=== PATIENT | female | born 1935 ===

== ENCOUNTER 2022-01-24 14:11 | Inpatient (IN) | payer MEDICARE, OTHER ==
--- NOTE | 2022-01-25 08:23 | Progress Note ---
Hospitalist Physical - Constitutional Vitals: Temp Pulse Resp BP Pulse Ox 97.5 F L 76 18 148/83 96 01/25/22 02:45 01/25/22 02:45 01/25/22 02:45 01/25/22 02:45 01/25/22 02:45 Results Call/IV: Voiding Method Toilet
--- NOTE | 2022-01-25 09:38 | History and Physical Report ---
GP History & Physical - History of Present Illness Date of admission: 01/24/22 Date of Examination: 01/25/22 Reason for Admission: Danger to self, Failure of Outpatient Treatment, Severe anxiety/depression History of Present Illness: The patient was seen today. She is awake and sitting on side of the bed. She is a/o x 2. She is overall sharp. She is calm, pleasant and cooperative. She says she is here because she said something she shouldn't have said. She says she was having anxiety and said she wanted to kill herself. The patient says she drove herself to the ER. She says he has a history of depression and anxiety and takes zoloft and xanax. The patient denies an illicit drug use, alcohol or nicotine. PAST PSYCHIATRIC HISTORY: Diagnoses: depression, anxiety Suicide attempts or Self-harm behavior: Denies Prior psychiatric hospitalizations: Denies Substance Abuse history: Denies Previous psychiatric medications tried: zoloft, xanax Outpatient treatment: Yes PAST MEDICAL HISTORY: Family Psychiatric History: None reported SOCIAL HISTORY Marital Status: Living Arrangements: Alone Employment Status: Retired Access to guns/weapons: Denies Education: College History of Abuse: Denies Legal History: Denies REVIEW OF SYSTEMS Constitutional: Negative for weight loss ENT: Negative for stridor Respiratory: Negative for cough or hemoptysis All other systems reviewed and are negative MENTAL STATUS General Appearance and Behavior: age appropriate, good eye contact, cooperative, calm, pleasant Cooperation: Cooperative Psychomotor Behavior: within normal limits Mood: depressed, anxious Affect and affective range: Congruent with stated mood, tearful Thought Process: goal directed Thought Content: None Speech: Normal volume and Regular rate and rhythm Suicidal Ideation: denies at present, but previously Homicidal Ideation: Denies HI Hallucinations: Denies Delusions: None elicited Impulse Control: Limited Insight and Judgment: Limited Memory: Limited Attention: Attentive Orientation: alert and oriented Assessment Majore Depressive Disorder Generalized Anxiety Disorder Treatment Plan Patient will be admitted for inpatient psychiatric evaluation, medication adjustment and close monitoring The patient's behavior, mood, sleep and appetite will be closely monitored. Patient will be enrolled in individual and group therapeutic sessions and encouraged to attend. Patient will be provided with a safe and structured environment. Patient's physical health needs will be addressed by the Hospitalist. Hospitalist Consulted Labs including CBC, CMP, Lipid profile and Hemoglobin A1C ordered Social Assessment will be completed and the Vocational Rehabilitation Supervisor will work with patient and family to ensure a suitable and safe disposition Medication adjustment will be made as clinically indicated Restarted home meds Usual Wellness Nondenominational/Preservation: - Start Trazodone 50 mg po QHS PRN The patient agreed on the treatment plan, understood the risk, benefit, alternative treatment, potential consequence of no treatment, and gave informed consent. Case staffed with Dr. Shanks Legal Status: Voluntary Reaction to Hospitalization: Accepting Medications and Allergies Allergies Allergy/AdvReac Type Severity Reaction Status Date / Time Penicillins Allergy Unknown Verified 01/25/22 00:20 Sulfa (Sulfonamide Allergy Unknown Verified 01/25/22 00:22 Antibiotics) Home Medications Medication Instructions Recorded Confirmed Last Taken Type ALPRAZolam [Xanax TAB] 0.5 mg PO HS 01/25/22 01/25/22 Unknown History Aspirin EC [Halfprin EC] 81 mg PO QDAY 01/25/22 01/25/22 Unknown History AtorvaSTATin [Lipitor] 10 mg PO DAILY 01/25/22 01/25/22 Unknown History Calcium Carbonate [Calcium] 1,200 mg PO DAILY 01/25/22 01/25/22 Unknown History Cholecalciferol (Vitamin D3) 2,000 units PO DAILY 01/25/22 01/25/22 Unknown History [Vitamin D3 2,000 UNIT CAP] Ciprofloxacin HCl 500 mg PO BID 01/25/22 01/25/22 Unknown History HYDROcodone/APAP 5-325 [[place] 1 tab PO BID PRN 01/25/22 01/25/22 Unknown History 5-325 mg TAB] Levothyroxine [Synthroid] 112 mcg PO QAM 01/25/22 01/25/22 Unknown History Sertraline [Zoloft] 150 mg PO QDAY 01/25/22 01/25/22 Unknown History amLODIPine [Norvasc] 5 mg PO DAILY 01/25/22 01/25/22 Unknown History donepeziL [Aricept] 10 mg PO HS 01/25/22 01/25/22 Unknown History hydroCHLOROthiazide [HCTZ] 25 mg PO QDAY 01/25/22 01/25/22 Unknown History lisinopriL [Zestril TAB] 40 mg PO QDAY 01/25/22 01/25/22 Unknown History Results - Results Labs/Vitals: Last Vital Signs Temp 97.9 F 01/25/22 07:22 Pulse 89 01/25/22 07:22 Resp 20 01/25/22 07:22 BP 158/66 01/25/22 07:22 Pulse Ox 98 01/25/22 07:22 Physical Examination - Constitutional Vitals: Vital Signs Temp Pulse Resp BP Pulse Ox 97.9 F 89 20 158/66 98 01/25/22 07:22 01/25/22 07:22 01/25/22 07:22 01/25/22 07:22 01/25/22 07:22 Temperature -Last 24 Hours Temperature 97.9 F Temperature 97.5 F Temperature 97.5 F Mental Status Exam - Vital signs Last Vital Signs Temp 97.9 F 01/25/22 07:22 Pulse 89 01/25/22 07:22 Resp 20 01/25/22 07:22 BP 158/66 01/25/22 07:22 Pulse Ox 98 01/25/22 07:22 Physician Certification - Certification Statement Physician Certification Statement: This is an acknowledgement statement that THIEN SAGE is a 87 year old F who requires inpatient psychiatric admission for treatment which could reasonably be expected to improve the patient's condition for Estimated period of time patient will need to remain in the hospital: [ ] Plan for post-hospital care: [ ]
[2022-01-25] MEDS ORDERED: NON-FORMULARY EACH (Cholecalciferol (Vitamin D3) [Vitamin D3 2,000 Unit Cap] 2,000 UNIT Ca PO SCH (10:00)
[2022-01-25] MEDS ORDERED: NON-FORMULARY EACH (Calcium Carbonate [Calcium] 600 MG Tablet) PO SCH (10:00)
[2022-01-25] MEDS ORDERED: NON-FORMULARY EACH (Ciprofloxacin Hcl [Ciprofloxacin Hcl] 500 MG Tablet) PO SCH (10:00)
--- NOTE | 2022-01-25 10:14 | Consultation ---
History of Present Illness - Reason for Consult Consult date: 01/25/22 htn Requesting physician: ELMER JOHNSON - History of Present Illness Patient is a pleasant 87 year old female, with hx of depression, anxiety, HTN, hyperlipidemia, acquired hypothyroidsim, and cataract who [facility] following reported suicidal thoughts which she now states was a very fleeting thought that did not last a but a few seconds. We are asked to evaluate her for medical management. She reports compliance with her medications and denies any chest pain, nausea, vomiting, diarrhea, she is quit plesant and very knowledgeable about her medical condition. 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 Past History Past Medical History: GERD, hypertension, hyperlipidemia, hypothyroidism Past Surgical History: cataract removal, thyroidectomy, total knee replacement (bilateral), Other (RIGHT WRIST SURGERY) Social history: full code Family history: no significant family history Medications and Allergies Allergies Allergy/AdvReac Type Severity Reaction Status Date / Time Penicillins Allergy Unknown Verified 01/25/22 00:20 Sulfa (Sulfonamide Allergy Unknown Verified 01/25/22 00:22 Antibiotics) Home Medications Medication Instructions Recorded Confirmed Last Taken Type ALPRAZolam [Xanax TAB] 0.5 mg PO HS 01/25/22 01/25/22 Unknown History Aspirin EC [Halfprin EC] 81 mg PO QDAY 01/25/22 01/25/22 Unknown History AtorvaSTATin [Lipitor] 10 mg PO DAILY 01/25/22 01/25/22 Unknown History Calcium Carbonate [Calcium] 1,200 mg PO DAILY 01/25/22 01/25/22 Unknown History Cholecalciferol (Vitamin D3) 2,000 units PO DAILY 01/25/22 01/25/22 Unknown History [Vitamin D3 2,000 UNIT CAP] Ciprofloxacin HCl 500 mg PO BID 01/25/22 01/25/22 Unknown History HYDROcodone/APAP 5-325 [[place] 1 tab PO BID PRN 01/25/22 01/25/22 Unknown History 5-325 mg TAB] Levothyroxine [Synthroid] 112 mcg PO QAM 01/25/22 01/25/22 Unknown History Sertraline [Zoloft] 150 mg PO QDAY 01/25/22 01/25/22 Unknown History amLODIPine [Norvasc] 5 mg PO DAILY 01/25/22 01/25/22 Unknown History donepeziL [Aricept] 10 mg PO HS 01/25/22 01/25/22 Unknown History hydroCHLOROthiazide [HCTZ] 25 mg PO QDAY 01/25/22 01/25/22 Unknown History lisinopriL [Zestril TAB] 40 mg PO QDAY 01/25/22 01/25/22 Unknown History Active Meds: Active Medications Alprazolam (Alprazolam 0.5 Mg Tab) 0.5 mg PO HS [facility] Amlodipine Besylate (Amlodipine 5 Mg Tab) 5 mg PO DAILY [facility] Aspirin (Aspirin Ec 81 Mg Tab) 81 mg PO QDAY [facility] Atorvastatin Calcium (Atorvastatin 10 Mg Tab) 10 mg PO HS [facility] Calcium Carbonate/Glycine (Calcium Carbonate 1250 Mg Tab) 1,250 mg PO DAILY [facility] Donepezil HCl (Donepezil 10 Mg Tab) 10 mg PO HS [facility] Hydrochlorothiazide (Hydrochlorothiazide 25 Mg Tab) 25 mg PO QDAY [facility] Levothyroxine Sodium (Levothyroxine 112 Mcg Tab) 112 mcg PO 0600 [facility] Lisinopril (Lisinopril 40 Mg Tab) 40 mg PO QDAY [facility] Miscellaneous Medication (Cholecalciferol (Vitamin D3) [Vitamin D3 2,000 Unit Cap]) 2,000 units PO DAILY [facility] Miscellaneous Medication (Ciprofloxacin Hcl [Ciprofloxacin Hcl]) 500 mg PO BID [facility] Sertraline HCl (Sertraline 100 Mg Tab) 150 mg PO QDAY [facility] Review of Systems All systems: negative Constitutional: no weight loss, no weight gain, no fever, no chills, no sweats Cardiovascular: no chest pain, no orthopnea, no palpitations, no rapid/irregular heart beat, no edema, no syncope, no lightheadedness, no shortness of breath Respiratory: no cough with sputum, no hemoptysis, no shortness of breath, no dyspnea on exertion, no pain on inspiration, no sleep apnea, no respiratory infections, no home oxygen Gastrointestinal: no abdominal pain, no nausea, no vomiting, no diarrhea, no constipation, no change in bowel habits Musculoskeletal: no neck pain, no shooting arm pain, no arm numbness/tingling, no low back pain, no shooting leg pain, no morning stiffness, no muscle weakness, no muscle cramps, no myalgias, no frequent falls, no loss of height Integumentary: no rash, no pruritis, no redness, no wounds, no jaundice, no boils, no bullae, no lesions, no darkening of skin, no depigmentation, no color changes, no hirsutism, no foot/leg ulcers, no onychomycosis Neurological: no transient paralysis, no paralysis, no weakness, no parathesias, no tingling, no seizures, no syncope, no aphasia, no change in speech, no change in mentation, no confusion, no double vision, no loss of vision, no burning pain Psychiatric: anxiety, depression, no memory loss, no change in sleep habits, no sleep disturbances, no hypersomnia, no change in appetite, no change in libido Endocrine: no cold intolerance, no heat intolerance, no polyphagia, no excessive thirst, no polydipsia, no polyuria, no nocturia Allergic/Immunologic: no allergic rhinitis Exam - Constitutional Vitals: Temp Pulse Resp BP Pulse Ox 97.9 F 89 20 158/66 98 01/25/22 07:22 01/25/22 07:22 01/25/22 07:22 01/25/22 07:22 01/25/22 07:22 General appearance: Present: no acute distress, well-nourished - EENT ENT: hearing intact, clear oral mucosa - Neck Neck: Present: supple, normal ROM - Respiratory Respiratory effort: normal Respiratory: bilateral: CTA - Cardiovascular Rhythm: regular Heart Sounds: Present: S1 & S2. Absent: systolic murmur, diastolic murmur - Extremities Extremities: no ischemia, pulses intact, pulses symmetrical, No edema, normal temperature, normal color, Full ROM Peripheral Pulses: within normal limits - Abdominal General gastrointestinal: Present: soft, non-tender, non-distended, normal bowel sounds - Integumentary Integumentary: Present: clear, warm, dry - Musculoskeletal Musculoskeletal: strength equal bilaterally - Psychiatric Psychiatric: appropriate mood/affect, intact judgment & insight, memory intact, cooperative - Neurologic Neurologic: CNII-XII intact, moves all extremities, gait normal - Allied Health Allied health notes reviewed: nursing Assessment and Plan Patient is a pleasant 87 year old female, with hx of depression, anxiety, HTN, hyperlipidemia, acquired hypothyroidsim, and cataract who [facility] reported suicidal thoughts which she now states was a very fleeting thought that did not last a but a few seconds. We are asked to evaluate her for medical management. She reports compliance with her medications and denies any chest pain, nausea, vomiting, diarrhea, she is quit plesant and very knowledgeable about her medical condition. 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 Patient at the outside facility was noted to have hypertensive urgency of BP with 221/74 and also noted to have elevated Troponin and renal insufficency. It was decided at that facility that the patient has demand Ischemia. Labs reviewed showed Potassium level of 2.9 Major depressive disorder Anxiety disorder HTN Hyperlipidemia Chronic Tropenemia Hypothyrodisim Hx of Wrist surgery Hx of knee surgery Hx of Hysterectomy VANESSA on CKD now resolved PLAN Continue supportive care Continue home medication Manage BP Intermittent labs. DVT/GI
[2022-01-25] MEDS: ASPIRIN EC 81 MG TAB PO SCH (10:51)
[2022-01-25 11:17] LABS: Basophils % (Auto) 0.7 % (0.0-1.8); Hematocrit 43.2 % (30.3-42.9); Hemoglobin 13.9 gm/dl (10.1-14.3); Lymphocytes # (Auto) 1.9 K/mm3 (1.2-5.4); Lymphocytes % (Auto) 35.8 % (13.4-35.0); Mean Corpuscular HGB Conc 32 % (30-34); Mean Corpuscular Volume 86 fl (79-97); Monocytes # (Auto) 0.5 K/mm3 (0.0-0.8); Monocytes % (Auto) 8.4 % (0.0-7.3); Platelet Count 169 K/mm3 (140-440); Red Blood Count 5.01 M/mm3 (3.65-5.03); Red Cell Distribution Width 15.8 % (13.2-15.2)
[2022-01-25] MEDS: LISINOPRIL 40 MG TAB PO SCH (11:43)
[2022-01-25] MEDS: LEVOTHYROXINE 112 MCG TAB PO SCH (11:43)
[2022-01-25 11:46] LABS: Albumin 5.1 g/dL (3.9-5); Calcium 10.7 mg/dL (8.4-10.2); Chol/HDL Ratio 3.28 %
[2022-01-25] MEDS: hydroCHLOROthiazide 25 MG TAB PO SCH (11:47)
[2022-01-25] MEDS: SERTRALINE 100 MG TAB PO SCH (11:47)
[2022-01-25] MEDS: amLODIPine 5 MG TAB PO SCH (11:54)
[2022-01-25 12:56] LABS: Hepatitis B Surface Antigen Non-Reactive (Negative); Hepatitis C Virus Antibody Non-Reactive (NonReactive)
[2022-01-25] MEDS ORDERED: levoFLOXacin 500 MG TAB PO SCH ×2 (18:00→22:15)
[2022-01-25] MEDS: ALPRAZolam 0.5 MG TAB PO SCH (21:41)
[2022-01-25] MEDS: DONEPEZIL 10 MG TAB PO SCH (21:41)
[2022-01-26] MEDS: LEVOTHYROXINE 112 MCG TAB PO SCH (05:37)
--- NOTE | 2022-01-26 07:56 | Progress Note ---
Assessment and Plan Assessment and plan: Patient is a pleasant 87 year old female, with hx of depression, anxiety, HTN, hyperlipidemia, acquired hypothyroidsim, and cataract [facility] reported suicidal thoughts which she now states was a very fleeting thought that did not last a but a few seconds. We are asked to evaluate her for medical management. She reports compliance with her medications and denies any chest pain, nausea, vomiting, diarrhea, she is quit plesant and very knowledgeable about her medical condition. 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 Patient at the outside facility was noted to have hypertensive urgency of BP with 221/74 and also noted to have elevated Troponin and renal insufficency. It was decided at that facility that the patient has demand Ischemia. Labs reviewed showed Potassium level of 2.9 Major depressive disorder Anxiety disorder HTN Hyperlipidemia Chronic Tropenemia Hypothyrodisim Hx of Wrist surgery Hx of knee surgery Hx of Hysterectomy VANESSA on CKD now resolved PLAN Continue supportive care. Clinically stable, potassium rechecked at out hospital is 4 Creatnine is 1.5. will monitor prn Continue home medication Manage BP Intermittent labs. DVT/GI History Interval history: Patient seen and examined, resting comfortable. Hospitalist Physical - Physical exam Narrative exam: General appearance: Present: no acute distress, well-nourished - EENT ENT: hearing intact, clear oral mucosa - Neck Neck: Present: supple, normal ROM - Respiratory Respiratory effort: normal Respiratory: bilateral: CTA - Cardiovascular Rhythm: regular Heart Sounds: Present: S1 & S2. Absent: systolic murmur, diastolic murmur - Extremities Extremities: no ischemia, pulses intact, pulses symmetrical, No edema, normal temperature, normal color, Full ROM Peripheral Pulses: within normal limits - Abdominal General gastrointestinal: Present: soft, non-tender, non-distended, normal bowel sounds - Integumentary Integumentary: Present: clear, warm, dry - Musculoskeletal Musculoskeletal: strength equal bilaterally - Psychiatric Psychiatric: appropriate mood/affect, intact judgment & insight, memory intact, cooperative - Neurologic Neurologic: CNII-XII intact, moves all extremities, gait normal - Allied Health Allied health notes reviewed: nursing - Constitutional Vitals: Temp Pulse Resp BP Pulse Ox 97.4 F L 97 H 18 131/68 98 01/25/22 21:11 01/25/22 21:11 01/25/22 21:11 01/25/22 21:11 01/25/22 21:11 General appearance: Present: no acute distress, well-nourished Results - Labs CBC & Chem 7: 01/25/22 10:38 01/25/22 10:38 Labs: Laboratory Last Values WBC 5.4 K/mm3 (4.5-11.0) 01/25/22 10:38 RBC 5.01 M/mm3 (3.65-5.03) 01/25/22 10:38 Hgb 13.9 gm/dl (10.1-14.3) 01/25/22 10:38 Hct 43.2 % (30.3-42.9) H 01/25/22 10:38 MCV 86 fl (79-97) 01/25/22 10:38 MCH 28 pg (28-32) 01/25/22 10:38 MCHC 32 % (30-34) 01/25/22 10:38 RDW 15.8 % (13.2-15.2) H 01/25/22 10:38 Plt Count 169 K/mm3 (140-440) 01/25/22 10:38 Lymph % (Auto) 35.8 % (13.4-35.0) H 01/25/22 10:38 [place] % (Auto) 8.4 % (0.0-7.3) H 01/25/22 10:38 Eos % (Auto) 0.0 % (0.0-4.3) 01/25/22 10:38 Baso % (Auto) 0.7 % (0.0-1.8) 01/25/22 10:38 Lymph # (Auto) 1.9 K/mm3 (1.2-5.4) 01/25/22 10:38 [place] # (Auto) 0.5 K/mm3 (0.0-0.8) 01/25/22 10:38 Eos # (Auto) 0.0 K/mm3 (0.0-0.4) 01/25/22 10:38 Baso # (Auto) 0.0 K/mm3 (0.0-0.1) 01/25/22 10:38 Seg Neutrophils % 55.1 % (40.0-70.0) 01/25/22 10:38 Seg Neutrophils # 2.9 K/mm3 (1.8-7.7) 01/25/22 10:38 Sodium 147 mmol/L (137-145) H 01/25/22 10:38 Potassium 4.0 mmol/L (3.6-5.0) 01/25/22 10:38 Chloride 107.9 mmol/L (98-107) H 01/25/22 10:38 Carbon Dioxide 28 mmol/L (22-30) 01/25/22 10:38 Anion Gap 15 mmol/L 01/25/22 10:38 BUN 23 mg/dL (7-17) H 01/25/22 10:38 Creatinine 1.5 mg/dL (0.6-1.2) H 01/25/22 10:38 Estimated GFR 33 ml/min 01/25/22 10:38 BUN/Creatinine Ratio 15 % 01/25/22 10:38 Glucose 126 mg/dL (65-100) H 01/25/22 10:38 Hemoglobin A1c 6.2 % (4-6) H 01/25/22 10:38 Calcium 10.7 mg/dL (8.4-10.2) H 01/25/22 10:38 Total Bilirubin 0.50 mg/dL (0.1-1.2) 01/25/22 10:38 AST 29 units/L (5-40) 01/25/22 10:38 ALT 15 units/L (7-56) 01/25/22 10:38 Alkaline Phosphatase 79 units/L (35-129) 01/25/22 10:38 Total Protein 8.1 g/dL (6.3-8.2) 01/25/22 10:38 Albumin 5.1 g/dL (3.9-5) H 01/25/22 10:38 Albumin/Globulin Ratio 1.7 % 01/25/22 10:38 Triglycerides 126 mg/dL (2-149) 01/25/22 10:38 Cholesterol 246 mg/dL (50-199) H 01/25/22 10:38 LDL Cholesterol Direct 149 mg/dL (50-130) H 01/25/22 10:38 HDL Cholesterol 75 mg/dL (40-59) H 01/25/22 10:38 Cholesterol/HDL Ratio 3.28 % 01/25/22 10:38 TSH 19.790 mlU/mL (0.270-4.200) H 01/25/22 10:38 Hepatitis A IgM Ab Non-reactive (NonReactive) 01/25/22 10:38 Hep Bs Antigen Non-reactive (Negative) 01/25/22 10:38 Hep B Core IgM Ab Non-reactive (NonReactive) 01/25/22 10:38 Hepatitis C Antibody Non-reactive (NonReactive) 01/25/22 10:38 Call/IV: Voiding Method Toilet Active Medications - Current Medications Current Medications: Generic Name Dose Route Start Last Admin Trade Name Freq PRN Reason Stop Dose Admin Alprazolam 0.5 mg 01/25/22 22:00 01/25/22 21:41 Alprazolam 0.5 Mg Tab PO 0.5 mg HS [facility] Administration Amlodipine Besylate 5 mg 01/25/22 12:00 01/25/22 11:54 Amlodipine 5 Mg Tab PO 5 mg DAILY [facility] Administration Aspirin 81 mg 01/25/22 10:00 01/25/22 10:51 Aspirin Ec 81 Mg Tab PO 81 mg QDAY [facility] Administration Atorvastatin Calcium 10 mg 01/25/22 22:00 01/25/22 21:41 Atorvastatin 10 Mg Tab PO 10 mg HS [facility] Administration Calcium Carbonate/Glycine 1,250 mg 01/26/22 10:00 Calcium Carbonate 1250 Mg Tab PO DAILY [facility] Cholecalciferol 2,000 unit 01/26/22 12:00 Cholecalciferol (Vit D3) 1000 Unit (25 Mcg) Tab PO DAILY [facility] Donepezil HCl 10 mg 01/25/22 22:00 01/25/22 21:41 Donepezil 10 Mg Tab PO 10 mg HS [facility] Administration Hydrochlorothiazide 25 mg 01/25/22 12:00 01/25/22 11:47 Hydrochlorothiazide 25 Mg Tab PO 25 mg QDAY [facility] Administration Levofloxacin 250 mg 01/26/22 10:00 Levofloxacin 250 Mg Tab PO 01/27/22 10:01 Q24HR [facility] Levothyroxine Sodium 112 mcg 01/25/22 12:00 01/26/22 05:37 Levothyroxine 112 Mcg Tab PO 112 mcg 0600 [facility] Administration Lisinopril 40 mg 01/25/22 12:00 01/25/22 11:43 Lisinopril 40 Mg Tab PO 40 mg QDAY [facility] Administration Sertraline HCl 150 mg 01/25/22 12:00 01/25/22 11:47 Sertraline 100 Mg Tab PO 150 mg QDAY [facility] Administration
[2022-01-26] MEDS: levoFLOXacin 250 MG TAB PO SCH ×2 (08:46→10:00)
[2022-01-26] MEDS: SERTRALINE 100 MG TAB PO SCH ×2 (08:46→10:00)
[2022-01-26] MEDS: CALCIUM CARBONATE 1250 MG TAB PO SCH ×2 (08:46→10:00)
[2022-01-26] MEDS: hydroCHLOROthiazide 25 MG TAB PO SCH ×2 (08:46→10:00)
[2022-01-26] MEDS: ASPIRIN EC 81 MG TAB PO SCH ×2 (08:46→10:00)
[2022-01-26] MEDS: amLODIPine 5 MG TAB PO SCH (09:02)
[2022-01-26] MEDS: LISINOPRIL 40 MG TAB PO SCH (10:00)
[2022-01-26] MEDS: CHOLECALCIFEROL (VIT D3) 1000 UNIT (25 mcg) TAB PO SCH (12:30)
--- NOTE | 2022-01-26 12:36 | Progress Note ---
Subjective Date of service: 01/26/22 Subjective Comment: 01/26: The was seen today. She reports mood as "good", presents with appropriate affect, states sleep and appetite as good. She denies depression. The patient denies any current suicidal/homicidal ideation and denies hallucinations. REVIEW OF SYSTEMS Constitutional: Negative for weight loss ENT: Negative for stridor Respiratory: Negative for cough or hemoptysis All other systems reviewed and are negative MENTAL STATUS General Appearance and Behavior: age appropriate, good eye contact, cooperative, calm, pleasant Cooperation: Cooperative Psychomotor Behavior: within normal limits Mood: good Affect and affective range: Congruent with stated mood Thought Process: goal directed Thought Content: reality oriented Speech: Normal volume and Regular rate and rhythm Suicidal Ideation: Denies Homicidal Ideation: Denies HI Hallucinations: Denies Delusions: None elicited Impulse Control: Limited Insight and Judgment: Limited Memory: Limited Attention: Attentive Orientation: alert and oriented Assessment Major Depressive Disorder Generalized Anxiety Disorder Treatment Plan Patient will be admitted for inpatient psychiatric evaluation, medication adjustment and close monitoring The patient's behavior, mood, sleep and appetite will be closely monitored. Patient will be enrolled in individual and group therapeutic sessions and encouraged to attend. Patient will be provided with a safe and structured environment. Patient's physical health needs will be addressed by the Hospitalist. Hospitalist Consulted Labs including CBC, CMP, Lipid profile and Hemoglobin A1C ordered Social Assessment will be completed and the Rejogger will work with patient and family to ensure a suitable and safe disposition Medication adjustment will be made as clinically indicated Continue home meds Usual Wellness [facility]/Preservation: - Start Trazodone 50 mg po QHS PRN The patient agreed on the treatment plan, understood the risk, benefit, alternative treatment, potential consequence of no treatment, and gave informed consent. Case staffed with Dr. Shanks Legal Status: Voluntary Reaction to Hospitalization: Accepting Medications and Allergies Medications and Allergies Allergies Allergy/AdvReac Type Severity Reaction Status Date / Time Penicillins Allergy Unknown Verified 01/25/22 00:20 Sulfa (Sulfonamide Allergy Unknown Verified 01/25/22 00:22 Antibiotics) Home Medications Medication Instructions Recorded Confirmed Last Taken Type ALPRAZolam [Xanax TAB] 0.5 mg PO HS 01/25/22 01/25/22 Unknown History Aspirin EC [Halfprin EC] 81 mg PO QDAY 01/25/22 01/25/22 Unknown History AtorvaSTATin [Lipitor] 10 mg PO DAILY 01/25/22 01/25/22 Unknown History Calcium Carbonate [Calcium] 1,200 mg PO DAILY 01/25/22 01/25/22 Unknown History Cholecalciferol (Vitamin D3) 2,000 units PO DAILY 01/25/22 01/25/22 Unknown History [Vitamin D3 2,000 UNIT CAP] Ciprofloxacin HCl 500 mg PO BID 01/25/22 01/25/22 Unknown History HYDROcodone/APAP 5-325 [[place] 1 tab PO BID PRN 01/25/22 01/25/22 Unknown History 5-325 mg TAB] Levothyroxine [Synthroid] 112 mcg PO QAM 01/25/22 01/25/22 Unknown History Sertraline [Zoloft] 150 mg PO QDAY 01/25/22 01/25/22 Unknown History amLODIPine [Norvasc] 5 mg PO DAILY 01/25/22 01/25/22 Unknown History donepeziL [Aricept] 10 mg PO HS 01/25/22 01/25/22 Unknown History hydroCHLOROthiazide [HCTZ] 25 mg PO QDAY 01/25/22 01/25/22 Unknown History lisinopriL [Zestril TAB] 40 mg PO QDAY 01/25/22 01/25/22 Unknown History Active Meds: Active Medications Alprazolam (Alprazolam 0.5 Mg Tab) 0.5 mg PO [facility] Last Admin: 01/25/22 21:41 Dose: 0.5 mg Amlodipine Besylate (Amlodipine 5 Mg Tab) 5 mg PO DAILY [facility] Last Admin: 01/26/22 09:02 Dose: 5 mg Aspirin (Aspirin Ec 81 Mg Tab) 81 mg PO QDAY [facility] Last Admin: 01/26/22 10:00 Dose: Not Given Atorvastatin Calcium (Atorvastatin 10 Mg Tab) 10 mg PO [facility] Last Admin: 01/25/22 21:41 Dose: 10 mg Calcium Carbonate/Glycine (Calcium Carbonate 1250 Mg Tab) 1,250 mg PO DAILY [facility] Last Admin: 01/26/22 08:46 Dose: 1,250 mg Cholecalciferol (Cholecalciferol (Vit D3) 1000 Unit (25 Mcg) Tab) 2,000 unit PO DAILY [facility] Last Admin: 01/26/22 12:30 Dose: 2,000 unit Donepezil HCl (Donepezil 10 Mg Tab) 10 mg PO [facility] Last Admin: 01/25/22 21:41 Dose: 10 mg Hydrochlorothiazide (Hydrochlorothiazide 25 Mg Tab) 25 mg PO QDAY [facility] Last Admin: 01/26/22 10:00 Dose: Not Given Levofloxacin (Levofloxacin 250 Mg Tab) 250 mg PO Q24HR [facility] Stop: 01/27/22 10:01 Last Admin: 01/26/22 10:00 Dose: Not Given Levothyroxine Sodium (Levothyroxine 112 Mcg Tab) 112 mcg PO 0600 [facility] Last Admin: 01/26/22 05:37 Dose: 112 mcg Lisinopril (Lisinopril 40 Mg Tab) 40 mg PO QDAY [facility] Last Admin: 01/26/22 10:00 Dose: 40 mg Sertraline HCl (Sertraline 100 Mg Tab) 150 mg PO QDAY [facility] Last Admin: 01/26/22 10:00 Dose: Not Given Results - Results Labs/Vitals: Laboratory Last Values WBC 5.4 K/mm3 (4.5-11.0) 01/25/22 10:38 RBC 5.01 M/mm3 (3.65-5.03) 01/25/22 10:38 Hgb 13.9 gm/dl (10.1-14.3) 01/25/22 10:38 Hct 43.2 % (30.3-42.9) H 01/25/22 10:38 MCV 86 fl (79-97) 01/25/22 10:38 MCH 28 pg (28-32) 01/25/22 10:38 MCHC 32 % (30-34) 01/25/22 10:38 RDW 15.8 % (13.2-15.2) H 01/25/22 10:38 Plt Count 169 K/mm3 (140-440) 01/25/22 10:38 Lymph % (Auto) 35.8 % (13.4-35.0) H 01/25/22 10:38 [place] % (Auto) 8.4 % (0.0-7.3) H 01/25/22 10:38 Eos % (Auto) 0.0 % (0.0-4.3) 01/25/22 10:38 Baso % (Auto) 0.7 % (0.0-1.8) 01/25/22 10:38 Lymph # (Auto) 1.9 K/mm3 (1.2-5.4) 01/25/22 10:38 [place] # (Auto) 0.5 K/mm3 (0.0-0.8) 01/25/22 10:38 Eos # (Auto) 0.0 K/mm3 (0.0-0.4) 01/25/22 10:38 Baso # (Auto) 0.0 K/mm3 (0.0-0.1) 01/25/22 10:38 Seg Neutrophils % 55.1 % (40.0-70.0) 01/25/22 10:38 Seg Neutrophils # 2.9 K/mm3 (1.8-7.7) 01/25/22 10:38 Sodium 147 mmol/L (137-145) H 01/25/22 10:38 Potassium 4.0 mmol/L (3.6-5.0) 01/25/22 10:38 Chloride 107.9 mmol/L (98-107) H 01/25/22 10:38 Carbon Dioxide 28 mmol/L (22-30) 01/25/22 10:38 Anion Gap 15 mmol/L 01/25/22 10:38 BUN 23 mg/dL (7-17) H 01/25/22 10:38 Creatinine 1.5 mg/dL (0.6-1.2) H 01/25/22 10:38 Estimated GFR 33 ml/min 01/25/22 10:38 BUN/Creatinine Ratio 15 % 01/25/22 10:38 Glucose 126 mg/dL (65-100) H 01/25/22 10:38 Hemoglobin A1c 6.2 % (4-6) H 01/25/22 10:38 Calcium 10.7 mg/dL (8.4-10.2) H 01/25/22 10:38 Total Bilirubin 0.50 mg/dL (0.1-1.2) 01/25/22 10:38 AST 29 units/L (5-40) 01/25/22 10:38 ALT 15 units/L (7-56) 01/25/22 10:38 Alkaline Phosphatase 79 units/L (35-129) 01/25/22 10:38 Total Protein 8.1 g/dL (6.3-8.2) 01/25/22 10:38 Albumin 5.1 g/dL (3.9-5) H 01/25/22 10:38 Albumin/Globulin Ratio 1.7 % 01/25/22 10:38 Triglycerides 126 mg/dL (2-149) 01/25/22 10:38 Cholesterol 246 mg/dL (50-199) H 01/25/22 10:38 LDL Cholesterol Direct 149 mg/dL (50-130) H 01/25/22 10:38 HDL Cholesterol 75 mg/dL (40-59) H 01/25/22 10:38 Cholesterol/HDL Ratio 3.28 % 01/25/22 10:38 TSH 19.790 mlU/mL (0.270-4.200) H 01/25/22 10:38 Hepatitis A IgM Ab Non-reactive (NonReactive) 01/25/22 10:38 Hep Bs Antigen Non-reactive (Negative) 01/25/22 10:38 Hep B Core IgM Ab Non-reactive (NonReactive) 01/25/22 10:38 Hepatitis C Antibody Non-reactive (NonReactive) 01/25/22 10:38 Last Vital Signs Temp 97.4 F L 01/25/22 21:11 Pulse 89 01/26/22 09:02 Resp 18 01/25/22 21:11 BP 140/62 01/26/22 09:02 Pulse Ox 98 01/25/22 21:11
[2022-01-26] MEDS: DONEPEZIL 10 MG TAB PO SCH (21:36)
[2022-01-26] MEDS: ALPRAZolam 0.5 MG TAB PO SCH (21:37)
[2022-01-27] MEDS: LEVOTHYROXINE 112 MCG TAB PO SCH (06:25)
--- NOTE | 2022-01-27 07:39 | Progress Note ---
Assessment and Plan Assessment and plan: Patient is a pleasant 87 year old female, with hx of depression, anxiety, HTN, hyperlipidemia, acquired hypothyroidsim, and cataract who is currently admitted to the [facility] unit following reported suicidal thoughts which she now states was a very fleeting thought that did not last a but a few seconds. We are asked to evaluate her for medical management. She reports compliance with her medications and denies any chest pain, nausea, vomiting, diarrhea, she is quit plesant and very knowledgeable about her medical condition. 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 Patient at the outside facility was noted to have hypertensive urgency of BP with 221/74 and also noted to have elevated Troponin and renal insufficency. It was decided at that facility that the patient has demand Ischemia. Labs reviewed showed Potassium level of 2.9 Major depressive disorder Anxiety disorder HTN Hyperlipidemia Chronic Tropenemia Hypothyrodisim Hx of Wrist surgery Hx of knee surgery Hx of Hysterectomy VANESSA on CKD now resolved PLAN Continue supportive care. Clinically stable, potassium rechecked at out hospital is 4 Creatnine is 1.7. will monitor prn- Encourage fluid intake. Avoid all nephrotoxic agents Discontinue hydrochlorothiazide and monitor patient's blood pressure. If renal function continues to worsen may need to stop lisinopril also and switch to hydralazine and isosorbide. Continue home medication Manage BP Intermittent labs. DVT/GI History Interval history: Patient seen and examined, resting comfortable. Hospitalist Physical - Physical exam Narrative exam: General appearance: Present: no acute distress, well-nourished - EENT ENT: hearing intact, clear oral mucosa - Neck Neck: Present: supple, normal ROM - Respiratory Respiratory effort: normal Respiratory: bilateral: CTA - Cardiovascular Rhythm: regular Heart Sounds: Present: S1 & S2. Absent: systolic murmur, diastolic murmur - Extremities Extremities: no ischemia, pulses intact, pulses symmetrical, No edema, normal temperature, normal color, Full ROM Peripheral Pulses: within normal limits - Abdominal General gastrointestinal: Present: soft, non-tender, non-distended, normal bowel sounds - Integumentary Integumentary: Present: clear, warm, dry - Musculoskeletal Musculoskeletal: strength equal bilaterally - Psychiatric Psychiatric: appropriate mood/affect, intact judgment & insight, memory intact, cooperative - Neurologic Neurologic: CNII-XII intact, moves all extremities, gait normal - Allied Health Allied health notes reviewed: nursing - Constitutional Vitals: Temp Pulse Resp BP Pulse Ox 97.4 F L 89 18 140/62 98 01/25/22 21:11 01/26/22 09:02 01/26/22 08:05 01/26/22 09:02 01/26/22 08:05 General appearance: Present: no acute distress, well-nourished Results - Labs CBC & Chem 7: 01/25/22 10:38 01/27/22 08:01 Labs: Laboratory Last Values WBC 5.4 K/mm3 (4.5-11.0) 01/25/22 10:38 RBC 5.01 M/mm3 (3.65-5.03) 01/25/22 10:38 Hgb 13.9 gm/dl (10.1-14.3) 01/25/22 10:38 Hct 43.2 % (30.3-42.9) H 01/25/22 10:38 MCV 86 fl (79-97) 01/25/22 10:38 MCH 28 pg (28-32) 01/25/22 10:38 MCHC 32 % (30-34) 01/25/22 10:38 RDW 15.8 % (13.2-15.2) H 01/25/22 10:38 Plt Count 169 K/mm3 (140-440) 01/25/22 10:38 Lymph % (Auto) 35.8 % (13.4-35.0) H 01/25/22 10:38 [place] % (Auto) 8.4 % (0.0-7.3) H 01/25/22 10:38 Eos % (Auto) 0.0 % (0.0-4.3) 01/25/22 10:38 Baso % (Auto) 0.7 % (0.0-1.8) 01/25/22 10:38 Lymph # (Auto) 1.9 K/mm3 (1.2-5.4) 01/25/22 10:38 [place] # (Auto) 0.5 K/mm3 (0.0-0.8) 01/25/22 10:38 Eos # (Auto) 0.0 K/mm3 (0.0-0.4) 01/25/22 10:38 Baso # (Auto) 0.0 K/mm3 (0.0-0.1) 01/25/22 10:38 Seg Neutrophils % 55.1 % (40.0-70.0) 01/25/22 10:38 Seg Neutrophils # 2.9 K/mm3 (1.8-7.7) 01/25/22 10:38 Sodium 147 mmol/L (137-145) H 01/25/22 10:38 Potassium 4.0 mmol/L (3.6-5.0) 01/25/22 10:38 Chloride 107.9 mmol/L (98-107) H 01/25/22 10:38 Carbon Dioxide 28 mmol/L (22-30) 01/25/22 10:38 Anion Gap 15 mmol/L 01/25/22 10:38 BUN 23 mg/dL (7-17) H 01/25/22 10:38 Creatinine 1.5 mg/dL (0.6-1.2) H 01/25/22 10:38 Estimated GFR 33 ml/min 01/25/22 10:38 BUN/Creatinine Ratio 15 % 01/25/22 10:38 Glucose 126 mg/dL (65-100) H 01/25/22 10:38 Hemoglobin A1c 6.2 % (4-6) H 01/25/22 10:38 Calcium 10.7 mg/dL (8.4-10.2) H 01/25/22 10:38 Total Bilirubin 0.50 mg/dL (0.1-1.2) 01/25/22 10:38 AST 29 units/L (5-40) 01/25/22 10:38 ALT 15 units/L (7-56) 01/25/22 10:38 Alkaline Phosphatase 79 units/L (35-129) 01/25/22 10:38 Total Protein 8.1 g/dL (6.3-8.2) 01/25/22 10:38 Albumin 5.1 g/dL (3.9-5) H 01/25/22 10:38 Albumin/Globulin Ratio 1.7 % 01/25/22 10:38 Triglycerides 126 mg/dL (2-149) 01/25/22 10:38 Cholesterol 246 mg/dL (50-199) H 01/25/22 10:38 LDL Cholesterol Direct 149 mg/dL (50-130) H 01/25/22 10:38 HDL Cholesterol 75 mg/dL (40-59) H 01/25/22 10:38 Cholesterol/HDL Ratio 3.28 % 01/25/22 10:38 TSH 19.790 mlU/mL (0.270-4.200) H 01/25/22 10:38 Hepatitis A IgM Ab Non-reactive (NonReactive) 01/25/22 10:38 Hep Bs Antigen Non-reactive (Negative) 01/25/22 10:38 Hep B Core IgM Ab Non-reactive (NonReactive) 01/25/22 10:38 Hepatitis C Antibody Non-reactive (NonReactive) 01/25/22 10:38 Call/IV: Voiding Method Toilet Active Medications - Current Medications Current Medications: Generic Name Dose Route Start Last Admin Trade Name Freq PRN Reason Stop Dose Admin Alprazolam 0.5 mg 01/25/22 22:00 01/26/22 21:37 Alprazolam 0.5 Mg Tab PO 0.5 mg HS JAKE Administration Amlodipine Besylate 5 mg 01/25/22 12:00 01/26/22 09:02 Amlodipine 5 Mg Tab PO 5 mg DAILY JAKE Administration Aspirin 81 mg 01/25/22 10:00 01/26/22 10:00 Aspirin Ec 81 Mg Tab PO Not Given QDAY JAKE Atorvastatin Calcium 10 mg 01/25/22 22:00 01/26/22 21:36 Atorvastatin 10 Mg Tab PO 10 mg HS JAKE Administration Calcium Carbonate/Glycine 1,250 mg 01/26/22 10:00 01/26/22 10:00 Calcium Carbonate 1250 Mg Tab PO Not Given DAILY JAKE Cholecalciferol 2,000 unit 01/26/22 12:00 01/26/22 12:30 Cholecalciferol (Vit D3) 1000 Unit (25 Mcg) Tab PO 2,000 unit DAILY JAKE Administration Donepezil HCl 10 mg 01/25/22 22:00 01/26/22 21:36 Donepezil 10 Mg Tab PO 10 mg HS JAKE Administration Hydrochlorothiazide 25 mg 01/25/22 12:00 01/26/22 10:00 Hydrochlorothiazide 25 Mg Tab PO Not Given QDAY JAKE Levofloxacin 250 mg 01/26/22 10:00 01/26/22 10:00 Levofloxacin 250 Mg Tab PO 01/27/22 10:01 Not Given Q24HR JAKE Levothyroxine Sodium 112 mcg 01/25/22 12:00 01/27/22 06:25 Levothyroxine 112 Mcg Tab PO 112 mcg 0600 JAKE Administration Lisinopril 40 mg 01/25/22 12:00 01/26/22 10:00 Lisinopril 40 Mg Tab PO 40 mg QDAY JAKE Administration Sertraline HCl 150 mg 01/25/22 12:00 01/26/22 10:00 Sertraline 100 Mg Tab PO Not Given QDAY JAKE
[2022-01-27 08:42] LABS: Calcium 10.3 mg/dL (8.4-10.2)
[2022-01-27] MEDS: CHOLECALCIFEROL (VIT D3) 1000 UNIT (25 mcg) TAB PO SCH (09:47)
[2022-01-27] MEDS: SERTRALINE 100 MG TAB PO SCH (09:47)
[2022-01-27] MEDS: levoFLOXacin 250 MG TAB PO SCH (09:48)
[2022-01-27] MEDS: ASPIRIN EC 81 MG TAB PO SCH (09:48)
[2022-01-27] MEDS: CALCIUM CARBONATE 1250 MG TAB PO SCH (09:48)
[2022-01-27] MEDS: LISINOPRIL 40 MG TAB PO SCH (09:48)
[2022-01-27] MEDS: hydroCHLOROthiazide 25 MG TAB PO SCH (09:48)
[2022-01-27] MEDS: amLODIPine 5 MG TAB PO SCH (09:51)
--- NOTE | 2022-01-27 09:51 | Progress Note ---
Subjective Date of service: 01/27/22 Subjective Comment: 01/27:The was seen today. She reports doing ok" I know that I have actions that display depression but I don't feel depressed" she rates depression as 1/10. The patient denies any current suicidal/homicidal ideation and denies hallucinations. 01/26: The was seen today. She reports mood as "good", presents with appropriate affect, states sleep and appetite as good. She denies depression. The patient denies any current suicidal/homicidal ideation and denies hallucinations. REVIEW OF SYSTEMS Constitutional: Negative for weight loss ENT: Negative for stridor Respiratory: Negative for cough or hemoptysis All other systems reviewed and are negative MENTAL STATUS General Appearance and Behavior: age appropriate, good eye contact, cooperative, calm, pleasant Cooperation: Cooperative Psychomotor Behavior: within normal limits Mood: OK Affect and affective range: Congruent with stated mood Thought Process: goal directed Thought Content: reality oriented Speech: Normal volume and Regular rate and rhythm Suicidal Ideation: Denies Homicidal Ideation: Denies HI Hallucinations: Denies Delusions: None elicited Impulse Control: Limited Insight and Judgment: Limited Memory: Limited Attention: Attentive Orientation: alert and oriented Assessment Major Depressive Disorder Generalized Anxiety Disorder Treatment Plan Patient will be admitted for inpatient psychiatric evaluation, medication adjustment and close monitoring The patient's behavior, mood, sleep and appetite will be closely monitored. Patient will be enrolled in individual and group therapeutic sessions and encouraged to attend. Patient will be provided with a safe and structured environment. Patient's physical health needs will be addressed by the Hospitalist. Hospitalist Consulted Labs including CBC, CMP, Lipid profile and Hemoglobin A1C ordered Social Assessment will be completed and the Lamination Operator will work with patient and family to ensure a suitable and safe disposition Medication adjustment will be made as clinically indicated Continue home meds Usual Wellness [employer]/Preservation: - Start Trazodone 50 mg po QHS PRN The patient agreed on the treatment plan, understood the risk, benefit, alternative treatment, potential consequence of no treatment, and gave informed consent. Case staffed with Dr. Shanks Legal Status: Voluntary Reaction to Hospitalization: Accepting Medications and Allergies Medications and Allergies Allergies Allergy/AdvReac Type Severity Reaction Status Date / Time Penicillins Allergy Unknown Verified 01/25/22 00:20 Sulfa (Sulfonamide Allergy Unknown Verified 01/25/22 00:22 Antibiotics) Home Medications Medication Instructions Recorded Confirmed Last Taken Type ALPRAZolam [Xanax TAB] 0.5 mg PO HS 01/25/22 01/25/22 Unknown History Aspirin EC [Halfprin EC] 81 mg PO QDAY 01/25/22 01/25/22 Unknown History AtorvaSTATin [Lipitor] 10 mg PO DAILY 01/25/22 01/25/22 Unknown History Calcium Carbonate [Calcium] 1,200 mg PO DAILY 01/25/22 01/25/22 Unknown History Cholecalciferol (Vitamin D3) 2,000 units PO DAILY 01/25/22 01/25/22 Unknown History [Vitamin D3 2,000 UNIT CAP] Ciprofloxacin HCl 500 mg PO BID 01/25/22 01/25/22 Unknown History HYDROcodone/APAP 5-325 [[place] 1 tab PO BID PRN 01/25/22 01/25/22 Unknown History 5-325 mg TAB] Levothyroxine [Synthroid] 112 mcg PO QAM 01/25/22 01/25/22 Unknown History Sertraline [Zoloft] 150 mg PO QDAY 01/25/22 01/25/22 Unknown History amLODIPine [Norvasc] 5 mg PO DAILY 01/25/22 01/25/22 Unknown History donepeziL [Aricept] 10 mg PO HS 01/25/22 01/25/22 Unknown History hydroCHLOROthiazide [HCTZ] 25 mg PO QDAY 01/25/22 01/25/22 Unknown History lisinopriL [Zestril TAB] 40 mg PO QDAY 01/25/22 01/25/22 Unknown History Active Meds: Active Medications Alprazolam (Alprazolam 0.5 Mg Tab) 0.5 mg PO [facility] Last Admin: 01/26/22 21:37 Dose: 0.5 mg Amlodipine Besylate (Amlodipine 5 Mg Tab) 5 mg PO DAILY [facility] Last Admin: 01/26/22 09:02 Dose: 5 mg Aspirin (Aspirin Ec 81 Mg Tab) 81 mg PO QDAY [facility] Last Admin: 01/26/22 10:00 Dose: Not Given Atorvastatin Calcium (Atorvastatin 10 Mg Tab) 10 mg PO [facility] Last Admin: 01/26/22 21:36 Dose: 10 mg Calcium Carbonate/Glycine (Calcium Carbonate 1250 Mg Tab) 1,250 mg PO DAILY [facility] Last Admin: 01/26/22 10:00 Dose: Not Given Cholecalciferol (Cholecalciferol (Vit D3) 1000 Unit (25 Mcg) Tab) 2,000 unit PO DAILY [facility] Last Admin: 01/26/22 12:30 Dose: 2,000 unit Donepezil HCl (Donepezil 10 Mg Tab) 10 mg PO HS [facility] Last Admin: 01/26/22 21:36 Dose: 10 mg Hydrochlorothiazide (Hydrochlorothiazide 25 Mg Tab) 25 mg PO QDAY [facility] Last Admin: 01/26/22 10:00 Dose: Not Given Levofloxacin (Levofloxacin 250 Mg Tab) 250 mg PO Q24HR [facility] Stop: 01/27/22 10:01 Last Admin: 01/26/22 10:00 Dose: Not Given Levothyroxine Sodium (Levothyroxine 112 Mcg Tab) 112 mcg PO 0600 [facility] Last Admin: 01/27/22 06:25 Dose: 112 mcg Lisinopril (Lisinopril 40 Mg Tab) 40 mg PO QDAY [facility] Last Admin: 01/26/22 10:00 Dose: 40 mg Sertraline HCl (Sertraline 100 Mg Tab) 150 mg PO QDAY [facility] Last Admin: 01/26/22 10:00 Dose: Not Given Results - Results Labs/Vitals: Laboratory Last Values WBC 5.4 K/mm3 (4.5-11.0) 01/25/22 10:38 RBC 5.01 M/mm3 (3.65-5.03) 01/25/22 10:38 Hgb 13.9 gm/dl (10.1-14.3) 01/25/22 10:38 Hct 43.2 % (30.3-42.9) H 01/25/22 10:38 MCV 86 fl (79-97) 01/25/22 10:38 MCH 28 pg (28-32) 01/25/22 10:38 MCHC 32 % (30-34) 01/25/22 10:38 RDW 15.8 % (13.2-15.2) H 01/25/22 10:38 Plt Count 169 K/mm3 (140-440) 01/25/22 10:38 Lymph % (Auto) 35.8 % (13.4-35.0) H 01/25/22 10:38 [place] % (Auto) 8.4 % (0.0-7.3) H 01/25/22 10:38 Eos % (Auto) 0.0 % (0.0-4.3) 01/25/22 10:38 Baso % (Auto) 0.7 % (0.0-1.8) 01/25/22 10:38 Lymph # (Auto) 1.9 K/mm3 (1.2-5.4) 01/25/22 10:38 [place] # (Auto) 0.5 K/mm3 (0.0-0.8) 01/25/22 10:38 Eos # (Auto) 0.0 K/mm3 (0.0-0.4) 01/25/22 10:38 Baso # (Auto) 0.0 K/mm3 (0.0-0.1) 01/25/22 10:38 Seg Neutrophils % 55.1 % (40.0-70.0) 01/25/22 10:38 Seg Neutrophils # 2.9 K/mm3 (1.8-7.7) 01/25/22 10:38 Sodium 143 mmol/L (137-145) 01/27/22 08:01 Potassium 4.1 mmol/L (3.6-5.0) 01/27/22 08:01 Chloride 108.5 mmol/L (98-107) H 01/27/22 08:01 Carbon Dioxide 25 mmol/L (22-30) 01/27/22 08:01 Anion Gap 14 mmol/L 01/27/22 08:01 BUN 32 mg/dL (7-17) H 01/27/22 08:01 Creatinine 1.7 mg/dL (0.6-1.2) H 01/27/22 08:01 Estimated GFR 28 ml/min 01/27/22 08:01 BUN/Creatinine Ratio 19 % 01/27/22 08:01 Glucose 103 mg/dL (65-100) H 01/27/22 08:01 Hemoglobin A1c 6.2 % (4-6) H 01/25/22 10:38 Calcium 10.3 mg/dL (8.4-10.2) H 01/27/22 08:01 Total Bilirubin 0.50 mg/dL (0.1-1.2) 01/25/22 10:38 AST 29 units/L (5-40) 01/25/22 10:38 ALT 15 units/L (7-56) 01/25/22 10:38 Alkaline Phosphatase 79 units/L (35-129) 01/25/22 10:38 Total Protein 8.1 g/dL (6.3-8.2) 01/25/22 10:38 Albumin 5.1 g/dL (3.9-5) H 01/25/22 10:38 Albumin/Globulin Ratio 1.7 % 01/25/22 10:38 Triglycerides 126 mg/dL (2-149) 01/25/22 10:38 Cholesterol 246 mg/dL (50-199) H 01/25/22 10:38 LDL Cholesterol Direct 149 mg/dL (50-130) H 01/25/22 10:38 HDL Cholesterol 75 mg/dL (40-59) H 01/25/22 10:38 Cholesterol/HDL Ratio 3.28 % 01/25/22 10:38 TSH 19.790 mlU/mL (0.270-4.200) H 01/25/22 10:38 Hepatitis A IgM Ab Non-reactive (NonReactive) 01/25/22 10:38 Hep Bs Antigen Non-reactive (Negative) 01/25/22 10:38 Hep B Core IgM Ab Non-reactive (NonReactive) 01/25/22 10:38 Hepatitis C Antibody Non-reactive (NonReactive) 01/25/22 10:38 Last Vital Signs Temp 98.0 F 01/26/22 19:54 Pulse 94 H 01/26/22 19:54 Resp 17 01/26/22 19:54 BP 152/58 01/26/22 19:54 Pulse Ox 96 01/26/22 19:54
[2022-01-27] MEDS: DONEPEZIL 10 MG TAB PO SCH (21:41)
[2022-01-27] MEDS: ALPRAZolam 0.5 MG TAB PO SCH (21:41)
[2022-01-28] MEDS: LEVOTHYROXINE 112 MCG TAB PO SCH (06:29)
--- NOTE | 2022-01-28 08:30 | Progress Note ---
Assessment and Plan Assessment and plan: Patient is a pleasant 87 year old female, with hx of depression, anxiety, HTN, hyperlipidemia, acquired hypothyroidsim, and cataract who is currently admitted to the [facility] unit following reported suicidal thoughts which she now states was a very fleeting thought that did not last a but a few seconds. We are asked to evaluate her for medical management. She reports compliance with her medications and denies any chest pain, nausea, vomiting, diarrhea, she is quit plesant and very knowledgeable about her medical condition. 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 Patient at the outside facility was noted to have hypertensive urgency of BP with 221/74 and also noted to have elevated Troponin and renal insufficency. It was decided at that facility that the patient has demand Ischemia. Labs reviewed showed Potassium level of 2.9 Major depressive disorder Anxiety disorder HTN Hyperlipidemia Chronic Tropenemia Hypothyrodisim Hx of Wrist surgery Hx of knee surgery Hx of Hysterectomy VANESSA on CKD now resolved PLAN Continue supportive care. Clinically stable, potassium rechecked at out hospital is 4 Creatnine is 1.7. will monitor prn- Encourage fluid intake. Repeat BMP in am Avoid all nephrotoxic agents Continue holding hydrochlorothiazide and monitor patient's blood pressure which is stable so far. If renal function continues to worsen may need to stop lisino pril also and switch to hydralazine and isosorbide. Continue home medication Manage BP Intermittent labs. DVT/GI History Interval history: Patient seen and examined, resting comfortable. Tolerating diet and fluid intake Hospitalist Physical - Physical exam Narrative exam: General appearance: Present: no acute distress, well-nourished - EENT ENT: hearing intact, clear oral mucosa - Neck Neck: Present: supple, normal ROM - Respiratory Respiratory effort: normal Respiratory: bilateral: CTA - Cardiovascular Rhythm: regular Heart Sounds: Present: S1 & S2. Absent: systolic murmur, diastolic murmur - Extremities Extremities: no ischemia, pulses intact, pulses symmetrical, No edema, normal temperature, normal color, Full ROM Peripheral Pulses: within normal limits - Abdominal General gastrointestinal: Present: soft, non-tender, non-distended, normal bowel sounds - Integumentary Integumentary: Present: clear, warm, dry - Musculoskeletal Musculoskeletal: strength equal bilaterally - Psychiatric Psychiatric: appropriate mood/affect, intact judgment & insight, memory intact, cooperative - Neurologic Neurologic: CNII-XII intact, moves all extremities, gait normal - Allied Health Allied health notes reviewed: nursing - Constitutional Vitals: Temp Pulse Resp BP Pulse Ox 97.9 F 80 16 124/55 98 01/27/22 20:37 01/28/22 07:40 01/28/22 07:40 01/28/22 07:40 01/28/22 07:40 General appearance: Present: no acute distress, well-nourished Results - Labs CBC & Chem 7: 01/25/22 10:38 01/27/22 08:01 Labs: Laboratory Last Values WBC 5.4 K/mm3 (4.5-11.0) 01/25/22 10:38 RBC 5.01 M/mm3 (3.65-5.03) 01/25/22 10:38 Hgb 13.9 gm/dl (10.1-14.3) 01/25/22 10:38 Hct 43.2 % (30.3-42.9) H 01/25/22 10:38 MCV 86 fl (79-97) 01/25/22 10:38 MCH 28 pg (28-32) 01/25/22 10:38 MCHC 32 % (30-34) 01/25/22 10:38 RDW 15.8 % (13.2-15.2) H 01/25/22 10:38 Plt Count 169 K/mm3 (140-440) 01/25/22 10:38 Lymph % (Auto) 35.8 % (13.4-35.0) H 01/25/22 10:38 [place] % (Auto) 8.4 % (0.0-7.3) H 01/25/22 10:38 Eos % (Auto) 0.0 % (0.0-4.3) 01/25/22 10:38 Baso % (Auto) 0.7 % (0.0-1.8) 01/25/22 10:38 Lymph # (Auto) 1.9 K/mm3 (1.2-5.4) 01/25/22 10:38 [place] # (Auto) 0.5 K/mm3 (0.0-0.8) 01/25/22 10:38 Eos # (Auto) 0.0 K/mm3 (0.0-0.4) 01/25/22 10:38 Baso # (Auto) 0.0 K/mm3 (0.0-0.1) 01/25/22 10:38 Seg Neutrophils % 55.1 % (40.0-70.0) 01/25/22 10:38 Seg Neutrophils # 2.9 K/mm3 (1.8-7.7) 01/25/22 10:38 Sodium 143 mmol/L (137-145) 01/27/22 08:01 Potassium 4.1 mmol/L (3.6-5.0) 01/27/22 08:01 Chloride 108.5 mmol/L (98-107) H 01/27/22 08:01 Carbon Dioxide 25 mmol/L (22-30) 01/27/22 08:01 Anion Gap 14 mmol/L 01/27/22 08:01 BUN 32 mg/dL (7-17) H 01/27/22 08:01 Creatinine 1.7 mg/dL (0.6-1.2) H 01/27/22 08:01 Estimated GFR 28 ml/min 01/27/22 08:01 BUN/Creatinine Ratio 19 % 01/27/22 08:01 Glucose 103 mg/dL (65-100) H 01/27/22 08:01 Hemoglobin A1c 6.2 % (4-6) H 01/25/22 10:38 Calcium 10.3 mg/dL (8.4-10.2) H 01/27/22 08:01 Total Bilirubin 0.50 mg/dL (0.1-1.2) 01/25/22 10:38 AST 29 units/L (5-40) 01/25/22 10:38 ALT 15 units/L (7-56) 01/25/22 10:38 Alkaline Phosphatase 79 units/L (35-129) 01/25/22 10:38 Total Protein 8.1 g/dL (6.3-8.2) 01/25/22 10:38 Albumin 5.1 g/dL (3.9-5) H 01/25/22 10:38 Albumin/Globulin Ratio 1.7 % 01/25/22 10:38 Triglycerides 126 mg/dL (2-149) 01/25/22 10:38 Cholesterol 246 mg/dL (50-199) H 01/25/22 10:38 LDL Cholesterol Direct 149 mg/dL (50-130) H 01/25/22 10:38 HDL Cholesterol 75 mg/dL (40-59) H 01/25/22 10:38 Cholesterol/HDL Ratio 3.28 % 01/25/22 10:38 TSH 19.790 mlU/mL (0.270-4.200) H 01/25/22 10:38 Free T4 1.07 ng/dL (0.76-1.46) 01/27/22 10:32 Hepatitis A IgM Ab Non-reactive (NonReactive) 01/25/22 10:38 Hep Bs Antigen Non-reactive (Negative) 01/25/22 10:38 Hep B Core IgM Ab Non-reactive (NonReactive) 01/25/22 10:38 Hepatitis C Antibody Non-reactive (NonReactive) 01/25/22 10:38 Call/IV: Voiding Method Toilet Active Medications - Current Medications Current Medications: Generic Name Dose Route Start Last Admin Trade Name Freq PRN Reason Stop Dose Admin Alprazolam 0.5 mg 01/25/22 22:00 01/27/22 21:41 Alprazolam 0.5 Mg Tab PO 0.5 mg HS JAKE Administration Amlodipine Besylate 5 mg 01/25/22 12:00 01/27/22 09:51 Amlodipine 5 Mg Tab PO 5 mg DAILY JAKE Administration Aspirin 81 mg 01/25/22 10:00 01/27/22 09:48 Aspirin Ec 81 Mg Tab PO 81 mg QDAY JAKE Administration Atorvastatin Calcium 10 mg 01/25/22 22:00 01/27/22 21:41 Atorvastatin 10 Mg Tab PO 10 mg HS JAKE Administration Calcium Carbonate/Glycine 1,250 mg 01/26/22 10:00 01/27/22 09:48 Calcium Carbonate 1250 Mg Tab PO 1,250 mg DAILY JAKE Administration Cholecalciferol 2,000 unit 01/26/22 12:00 01/27/22 09:47 Cholecalciferol (Vit D3) 1000 Unit (25 Mcg) Tab PO 2,000 unit DAILY JAKE Administration Donepezil HCl 10 mg 01/25/22 22:00 01/27/22 21:41 Donepezil 10 Mg Tab PO 10 mg HS JAKE Administration Levothyroxine Sodium 112 mcg 01/25/22 12:00 01/28/22 06:29 Levothyroxine 112 Mcg Tab PO 112 mcg 0600 JAKE Administration Lisinopril 40 mg 01/25/22 12:00 01/27/22 09:48 Lisinopril 40 Mg Tab PO 40 mg QDAY JAKE Administration Sertraline HCl 150 mg 01/25/22 12:00 01/27/22 09:47 Sertraline 100 Mg Tab PO 150 mg QDAY JAKE Administration
--- NOTE | 2022-01-28 09:23 | Progress Note ---
Subjective Date of service: 01/28/22 Subjective Comment: 01/28:The was seen today. She reports doing well and mood is good. She reports sleep and appetite as good. The patient denies any current suicidal/homicidal ideation and denies hallucinations. No changes made today. 01/27:The was seen today. She reports doing ok" I know that I have actions that display depression but I don't feel depressed" she rates depression as 1/10. The patient denies any current suicidal/homicidal ideation and denies hallucinations. 01/26: The was seen today. She reports mood as "good", presents with appropriate affect, states sleep and appetite as good. She denies depression. The patient denies any current suicidal/homicidal ideation and denies hallucinations. REVIEW OF SYSTEMS Constitutional: Negative for weight loss ENT: Negative for stridor Respiratory: Negative for cough or hemoptysis All other systems reviewed and are negative MENTAL STATUS General Appearance and Behavior: age appropriate, good eye contact, cooperative, calm, pleasant Cooperation: Cooperative Psychomotor Behavior: within normal limits Mood: good Affect and affective range: Congruent with stated mood Thought Process: goal directed Thought Content: reality oriented Speech: Normal volume and Regular rate and rhythm Suicidal Ideation: Denies Homicidal Ideation: Denies HI Hallucinations: Denies Delusions: None elicited Impulse Control: Limited Insight and Judgment: Limited Memory: Limited Attention: Attentive Orientation: alert and oriented Assessment Major Depressive Disorder Generalized Anxiety Disorder Treatment Plan Patient will be admitted for inpatient psychiatric evaluation, medication adjustment and close monitoring The patient's behavior, mood, sleep and appetite will be closely monitored. Patient will be enrolled in individual and group therapeutic sessions and encouraged to attend. Patient will be provided with a safe and structured environment. Patient's physical health needs will be addressed by the Hospitalist. Hospitalist Consulted Labs including CBC, CMP, Lipid profile and Hemoglobin A1C ordered Social Assessment will be completed and the Maintenance Journeyman will work with patient and family to ensure a suitable and safe disposition Medication adjustment will be made as clinically indicated Continue home meds Usual Wellness [facility]: - Start Trazodone 50 mg po QHS PRN The patient agreed on the treatment plan, understood the risk, benefit, alternative treatment, potential consequence of no treatment, and gave informed consent. Case staffed with Dr. Shanks Legal Status: Voluntary Reaction to Hospitalization: Accepting Medications and Allergies Medications and Allergies Allergies Allergy/AdvReac Type Severity Reaction Status Date / Time Penicillins Allergy Unknown Verified 01/25/22 00:20 Sulfa (Sulfonamide Allergy Unknown Verified 01/25/22 00:22 Antibiotics) Home Medications Medication Instructions Recorded Confirmed Last Taken Type ALPRAZolam [Xanax TAB] 0.5 mg PO 01/25/22 01/25/22 Unknown History Aspirin EC [Halfprin EC] 81 mg PO QDAY 01/25/22 01/25/22 Unknown History AtorvaSTATin [Lipitor] 10 mg PO DAILY 01/25/22 01/25/22 Unknown History Calcium Carbonate [Calcium] 1,200 mg PO DAILY 01/25/22 01/25/22 Unknown History Cholecalciferol (Vitamin D3) 2,000 units PO DAILY 01/25/22 01/25/22 Unknown History [Vitamin D3 2,000 UNIT CAP] Ciprofloxacin HCl 500 mg PO BID 01/25/22 01/25/22 Unknown History HYDROcodone/APAP 5-325 [[place] 1 tab PO BID PRN 01/25/22 01/25/22 Unknown History 5-325 mg TAB] Levothyroxine [Synthroid] 112 mcg PO QAM 01/25/22 01/25/22 Unknown History Sertraline [Zoloft] 150 mg PO QDAY 01/25/22 01/25/22 Unknown History amLODIPine [Norvasc] 5 mg PO DAILY 01/25/22 01/25/22 Unknown History donepeziL [Aricept] 10 mg PO HS 01/25/22 01/25/22 Unknown History hydroCHLOROthiazide [HCTZ] 25 mg PO QDAY 01/25/22 01/25/22 Unknown History lisinopriL [Zestril TAB] 40 mg PO QDAY 01/25/22 01/25/22 Unknown History Active Meds: Active Medications Alprazolam (Alprazolam 0.5 Mg Tab) 0.5 mg PO [facility] Last Admin: 01/27/22 21:41 Dose: 0.5 mg Amlodipine Besylate (Amlodipine 5 Mg Tab) 5 mg PO DAILY [facility] Last Admin: 01/27/22 09:51 Dose: 5 mg Aspirin (Aspirin Ec 81 Mg Tab) 81 mg PO QDAY [facility] Last Admin: 01/27/22 09:48 Dose: 81 mg Atorvastatin Calcium (Atorvastatin 10 Mg Tab) 10 mg PO [facility] Last Admin: 01/27/22 21:41 Dose: 10 mg Calcium Carbonate/Glycine (Calcium Carbonate 1250 Mg Tab) 1,250 mg PO DAILY [facility] Last Admin: 01/27/22 09:48 Dose: 1,250 mg Cholecalciferol (Cholecalciferol (Vit D3) 1000 Unit (25 Mcg) Tab) 2,000 unit PO DAILY [facility] Last Admin: 01/27/22 09:47 Dose: 2,000 unit Donepezil HCl (Donepezil 10 Mg Tab) 10 mg PO HS [facility] Last Admin: 01/27/22 21:41 Dose: 10 mg Levothyroxine Sodium (Levothyroxine 112 Mcg Tab) 112 mcg PO 0600 [facility] Last Admin: 01/28/22 06:29 Dose: 112 mcg Lisinopril (Lisinopril 40 Mg Tab) 40 mg PO QDAY [facility] Last Admin: 01/27/22 09:48 Dose: 40 mg Sertraline HCl (Sertraline 100 Mg Tab) 150 mg PO QDAY [facility] Last Admin: 01/27/22 09:47 Dose: 150 mg Results - Results Labs/Vitals: Laboratory Last Values WBC 5.4 K/mm3 (4.5-11.0) 01/25/22 10:38 RBC 5.01 M/mm3 (3.65-5.03) 01/25/22 10:38 Hgb 13.9 gm/dl (10.1-14.3) 01/25/22 10:38 Hct 43.2 % (30.3-42.9) H 01/25/22 10:38 MCV 86 fl (79-97) 01/25/22 10:38 MCH 28 pg (28-32) 01/25/22 10:38 MCHC 32 % (30-34) 01/25/22 10:38 RDW 15.8 % (13.2-15.2) H 01/25/22 10:38 Plt Count 169 K/mm3 (140-440) 01/25/22 10:38 Lymph % (Auto) 35.8 % (13.4-35.0) H 01/25/22 10:38 [place] % (Auto) 8.4 % (0.0-7.3) H 01/25/22 10:38 Eos % (Auto) 0.0 % (0.0-4.3) 01/25/22 10:38 Baso % (Auto) 0.7 % (0.0-1.8) 01/25/22 10:38 Lymph # (Auto) 1.9 K/mm3 (1.2-5.4) 01/25/22 10:38 [place] # (Auto) 0.5 K/mm3 (0.0-0.8) 01/25/22 10:38 Eos # (Auto) 0.0 K/mm3 (0.0-0.4) 01/25/22 10:38 Baso # (Auto) 0.0 K/mm3 (0.0-0.1) 01/25/22 10:38 Seg Neutrophils % 55.1 % (40.0-70.0) 01/25/22 10:38 Seg Neutrophils # 2.9 K/mm3 (1.8-7.7) 01/25/22 10:38 Sodium 143 mmol/L (137-145) 01/27/22 08:01 Potassium 4.1 mmol/L (3.6-5.0) 01/27/22 08:01 Chloride 108.5 mmol/L (98-107) H 01/27/22 08:01 Carbon Dioxide 25 mmol/L (22-30) 01/27/22 08:01 Anion Gap 14 mmol/L 01/27/22 08:01 BUN 32 mg/dL (7-17) H 01/27/22 08:01 Creatinine 1.7 mg/dL (0.6-1.2) H 01/27/22 08:01 Estimated GFR 28 ml/min 01/27/22 08:01 BUN/Creatinine Ratio 19 % 01/27/22 08:01 Glucose 103 mg/dL (65-100) H 01/27/22 08:01 Hemoglobin A1c 6.2 % (4-6) H 01/25/22 10:38 Calcium 10.3 mg/dL (8.4-10.2) H 01/27/22 08:01 Total Bilirubin 0.50 mg/dL (0.1-1.2) 01/25/22 10:38 AST 29 units/L (5-40) 01/25/22 10:38 ALT 15 units/L (7-56) 01/25/22 10:38 Alkaline Phosphatase 79 units/L (35-129) 01/25/22 10:38 Total Protein 8.1 g/dL (6.3-8.2) 01/25/22 10:38 Albumin 5.1 g/dL (3.9-5) H 01/25/22 10:38 Albumin/Globulin Ratio 1.7 % 01/25/22 10:38 Triglycerides 126 mg/dL (2-149) 01/25/22 10:38 Cholesterol 246 mg/dL (50-199) H 01/25/22 10:38 LDL Cholesterol Direct 149 mg/dL (50-130) H 01/25/22 10:38 HDL Cholesterol 75 mg/dL (40-59) H 01/25/22 10:38 Cholesterol/HDL Ratio 3.28 % 01/25/22 10:38 TSH 19.790 mlU/mL (0.270-4.200) H 01/25/22 10:38 Free T4 1.07 ng/dL (0.76-1.46) 01/27/22 10:32 Hepatitis A IgM Ab Non-reactive (NonReactive) 01/25/22 10:38 Hep Bs Antigen Non-reactive (Negative) 01/25/22 10:38 Hep B Core IgM Ab Non-reactive (NonReactive) 01/25/22 10:38 Hepatitis C Antibody Non-reactive (NonReactive) 01/25/22 10:38 Last Vital Signs Temp 97.9 F 01/27/22 20:37 Pulse 71 01/28/22 08:57 Resp 16 01/28/22 08:57 BP 124/55 01/28/22 08:57 Pulse Ox 98 01/28/22 08:57
[2022-01-28] MEDS: CALCIUM CARBONATE 1250 MG TAB PO SCH (10:23)
[2022-01-28] MEDS: SERTRALINE 100 MG TAB PO SCH (10:23)
[2022-01-28] MEDS: CHOLECALCIFEROL (VIT D3) 1000 UNIT (25 mcg) TAB PO SCH (10:23)
[2022-01-28] MEDS: amLODIPine 5 MG TAB PO SCH (10:24)
[2022-01-28] MEDS: LISINOPRIL 40 MG TAB PO SCH (10:25)
[2022-01-28] MEDS: ASPIRIN EC 81 MG TAB PO SCH (10:25)
[2022-01-28] MEDS: DONEPEZIL 10 MG TAB PO SCH (21:34)
[2022-01-28] MEDS: ALPRAZolam 0.5 MG TAB PO SCH (21:34)
[2022-01-29] MEDS: LEVOTHYROXINE 112 MCG TAB PO SCH (06:00)
[2022-01-29 08:00] LABS: Calcium 10.4 mg/dL (8.4-10.2)
--- NOTE | 2022-01-29 09:52 | Progress Note ---
Subjective Date of service: 01/29/22 Subjective Comment: 01/29: The was seen today. She reports doing well and mood is good. She reports sleep and appetite as good. The patient denies any current suicidal/homicidal ideation and denies hallucinations. No changes made today 01/28:The was seen today. She reports doing well and mood is good. She reports sleep and appetite as good. The patient denies any current suicidal/homicidal ideation and denies hallucinations. No changes made today. 01/27:The was seen today. She reports doing ok" I know that I have actions that display depression but I don't feel depressed" she rates depression as 1/10. The patient denies any current suicidal/homicidal ideation and denies hallucinations. 01/26: The was seen today. She reports mood as "good", presents with appropriate affect, states sleep and appetite as good. She denies depression. The patient denies any current suicidal/homicidal ideation and denies hallucinations. REVIEW OF SYSTEMS Constitutional: Negative for weight loss ENT: Negative for stridor Respiratory: Negative for cough or hemoptysis All other systems reviewed and are negative MENTAL STATUS General Appearance and Behavior: age appropriate, good eye contact, cooperative, calm, pleasant Cooperation: Cooperative Psychomotor Behavior: within normal limits Mood: good Affect and affective range: Congruent with stated mood Thought Process: goal directed Thought Content: reality oriented Speech: Normal volume and Regular rate and rhythm Suicidal Ideation: Denies Homicidal Ideation: Denies HI Hallucinations: Denies Delusions: None elicited Impulse Control: Limited Insight and Judgment: Limited Memory: Limited Attention: Attentive Orientation: alert and oriented Assessment Major Depressive Disorder Generalized Anxiety Disorder Treatment Plan Patient will be admitted for inpatient psychiatric evaluation, medication adjustment and close monitoring The patient's behavior, mood, sleep and appetite will be closely monitored. Patient will be enrolled in individual and group therapeutic sessions and encouraged to attend. Patient will be provided with a safe and structured environment. Patient's physical health needs will be addressed by the Hospitalist. Hospitalist Consulted Labs including CBC, CMP, Lipid profile and Hemoglobin A1C ordered Social Assessment will be completed and the Forming Operator will work with patient and family to ensure a suitable and safe disposition Medication adjustment will be made as clinically indicated Continue home meds Usual Wellness [facility]: - Start Trazodone 50 mg po QHS PRN The patient agreed on the treatment plan, understood the risk, benefit, alternative treatment, potential consequence of no treatment, and gave informed consent. Case staffed with Dr. Shanks Legal Status: Voluntary Reaction to Hospitalization: Accepting Medications and Allergies Medications and Allergies Allergies Allergy/AdvReac Type Severity Reaction Status Date / Time Penicillins Allergy Unknown Verified 01/25/22 00:20 Sulfa (Sulfonamide Allergy Unknown Verified 01/25/22 00:22 Antibiotics) Home Medications Medication Instructions Recorded Confirmed Last Taken Type ALPRAZolam [Xanax TAB] 0.5 mg PO HS 01/25/22 01/25/22 Unknown History Aspirin EC [Halfprin EC] 81 mg PO QDAY 01/25/22 01/25/22 Unknown History AtorvaSTATin [Lipitor] 10 mg PO DAILY 01/25/22 01/25/22 Unknown History Calcium Carbonate [Calcium] 1,200 mg PO DAILY 01/25/22 01/25/22 Unknown History Cholecalciferol (Vitamin D3) 2,000 units PO DAILY 01/25/22 01/25/22 Unknown History [Vitamin D3 2,000 UNIT CAP] Ciprofloxacin HCl 500 mg PO BID 01/25/22 01/25/22 Unknown History HYDROcodone/APAP 5-325 [[place] 1 tab PO BID PRN 01/25/22 01/25/22 Unknown History 5-325 mg TAB] Levothyroxine [Synthroid] 112 mcg PO QAM 01/25/22 01/25/22 Unknown History Sertraline [Zoloft] 150 mg PO QDAY 01/25/22 01/25/22 Unknown History amLODIPine [Norvasc] 5 mg PO DAILY 01/25/22 01/25/22 Unknown History donepeziL [Aricept] 10 mg PO HS 01/25/22 01/25/22 Unknown History hydroCHLOROthiazide [HCTZ] 25 mg PO QDAY 01/25/22 01/25/22 Unknown History lisinopriL [Zestril TAB] 40 mg PO QDAY 01/25/22 01/25/22 Unknown History Active Meds: Active Medications Alprazolam (Alprazolam 0.5 Mg Tab) 0.5 mg PO [facility] Last Admin: 01/28/22 21:34 Dose: 0.5 mg Amlodipine Besylate (Amlodipine 5 Mg Tab) 5 mg PO DAILY [facility] Last Admin: 01/28/22 10:24 Dose: 5 mg Aspirin (Aspirin Ec 81 Mg Tab) 81 mg PO QDAY [facility] Last Admin: 01/28/22 10:25 Dose: 81 mg Atorvastatin Calcium (Atorvastatin 10 Mg Tab) 10 mg PO [facility] Last Admin: 01/28/22 21:34 Dose: 10 mg Calcium Carbonate/Glycine (Calcium Carbonate 1250 Mg Tab) 1,250 mg PO DAILY [facility] Last Admin: 01/28/22 10:23 Dose: 1,250 mg Cholecalciferol (Cholecalciferol (Vit D3) 1000 Unit (25 Mcg) Tab) 2,000 unit PO DAILY [facility] Last Admin: 01/28/22 10:23 Dose: 2,000 unit Donepezil HCl (Donepezil 10 Mg Tab) 10 mg PO [facility] Last Admin: 01/28/22 21:34 Dose: 10 mg Levothyroxine Sodium (Levothyroxine 112 Mcg Tab) 112 mcg PO 0600 [facility] Last Admin: 01/29/22 06:00 Dose: 112 mcg Lisinopril (Lisinopril 40 Mg Tab) 40 mg PO QDAY [facility] Last Admin: 01/28/22 10:25 Dose: Not Given Sertraline HCl (Sertraline 100 Mg Tab) 150 mg PO QDAY [facility] Last Admin: 01/28/22 10:23 Dose: 150 mg Results - Results Labs/Vitals: Laboratory Last Values WBC 5.4 K/mm3 (4.5-11.0) 01/25/22 10:38 RBC 5.01 M/mm3 (3.65-5.03) 01/25/22 10:38 Hgb 13.9 gm/dl (10.1-14.3) 01/25/22 10:38 Hct 43.2 % (30.3-42.9) H 01/25/22 10:38 MCV 86 fl (79-97) 01/25/22 10:38 MCH 28 pg (28-32) 01/25/22 10:38 MCHC 32 % (30-34) 01/25/22 10:38 RDW 15.8 % (13.2-15.2) H 01/25/22 10:38 Plt Count 169 K/mm3 (140-440) 01/25/22 10:38 Lymph % (Auto) 35.8 % (13.4-35.0) H 01/25/22 10:38 [place] % (Auto) 8.4 % (0.0-7.3) H 01/25/22 10:38 Eos % (Auto) 0.0 % (0.0-4.3) 01/25/22 10:38 Baso % (Auto) 0.7 % (0.0-1.8) 01/25/22 10:38 Lymph # (Auto) 1.9 K/mm3 (1.2-5.4) 01/25/22 10:38 [place] # (Auto) 0.5 K/mm3 (0.0-0.8) 01/25/22 10:38 Eos # (Auto) 0.0 K/mm3 (0.0-0.4) 01/25/22 10:38 Baso # (Auto) 0.0 K/mm3 (0.0-0.1) 01/25/22 10:38 Seg Neutrophils % 55.1 % (40.0-70.0) 01/25/22 10:38 Seg Neutrophils # 2.9 K/mm3 (1.8-7.7) 01/25/22 10:38 Sodium 145 mmol/L (137-145) 01/29/22 07:14 Potassium 3.8 mmol/L (3.6-5.0) 01/29/22 07:14 Chloride 108.2 mmol/L (98-107) H 01/29/22 07:14 Carbon Dioxide 26 mmol/L (22-30) 01/29/22 07:14 Anion Gap 15 mmol/L 01/29/22 07:14 BUN 32 mg/dL (7-17) H 01/29/22 07:14 Creatinine 1.6 mg/dL (0.6-1.2) H 01/29/22 07:14 Estimated GFR 30 ml/min 01/29/22 07:14 BUN/Creatinine Ratio 20 % 01/29/22 07:14 Glucose 109 mg/dL (65-100) H 01/29/22 07:14 Hemoglobin A1c 6.2 % (4-6) H 01/25/22 10:38 Calcium 10.4 mg/dL (8.4-10.2) H 01/29/22 07:14 Total Bilirubin 0.50 mg/dL (0.1-1.2) 01/25/22 10:38 AST 29 units/L (5-40) 01/25/22 10:38 ALT 15 units/L (7-56) 01/25/22 10:38 Alkaline Phosphatase 79 units/L (35-129) 01/25/22 10:38 Total Protein 8.1 g/dL (6.3-8.2) 01/25/22 10:38 Albumin 5.1 g/dL (3.9-5) H 01/25/22 10:38 Albumin/Globulin Ratio 1.7 % 01/25/22 10:38 Triglycerides 126 mg/dL (2-149) 01/25/22 10:38 Cholesterol 246 mg/dL (50-199) H 01/25/22 10:38 LDL Cholesterol Direct 149 mg/dL (50-130) H 01/25/22 10:38 HDL Cholesterol 75 mg/dL (40-59) H 01/25/22 10:38 Cholesterol/HDL Ratio 3.28 % 01/25/22 10:38 TSH 19.790 mlU/mL (0.270-4.200) H 01/25/22 10:38 Free T4 1.07 ng/dL (0.76-1.46) 01/27/22 10:32 Hepatitis A IgM Ab Non-reactive (NonReactive) 01/25/22 10:38 Hep Bs Antigen Non-reactive (Negative) 01/25/22 10:38 Hep B Core IgM Ab Non-reactive (NonReactive) 01/25/22 10:38 Hepatitis C Antibody Non-reactive (NonReactive) 01/25/22 10:38 Last Vital Signs Temp 97.9 F 01/27/22 20:37 Pulse 71 01/28/22 10:24 Resp 16 01/28/22 08:57 BP 124/55 01/28/22 10:25 Pulse Ox 98 01/28/22 08:57
[2022-01-29] MEDS: ASPIRIN EC 81 MG TAB PO SCH (10:22)
[2022-01-29] MEDS: CALCIUM CARBONATE 1250 MG TAB PO SCH (10:22)
[2022-01-29] MEDS: CHOLECALCIFEROL (VIT D3) 1000 UNIT (25 mcg) TAB PO SCH (10:23)
[2022-01-29] MEDS: SERTRALINE 100 MG TAB PO SCH (10:23)
[2022-01-29] MEDS: amLODIPine 5 MG TAB PO SCH (10:24)
[2022-01-29] MEDS: LISINOPRIL 40 MG TAB PO SCH (10:28)
--- NOTE | 2022-01-29 15:10 | Progress Note ---
Assessment and Plan Assessment and plan: Patient is a pleasant 87 year old female, with hx of depression, anxiety, HTN, hyperlipidemia, acquired hypothyroidsim, and cataract who is currently admitted to the [facility] following reported suicidal thoughts which she now states was a very fleeting thought that did not last a but a few seconds. We are asked to evaluate her for medical management. She reports compliance with her medications and denies any chest pain, nausea, vomiting, diarrhea, she is quit plesant and very knowledgeable about her medical condition. 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 Patient at the outside facility was noted to have hypertensive urgency of BP with 221/74 and also noted to have elevated Troponin and renal insufficency. It was decided at that facility that the patient has demand Ischemia. Major depressive disorder Anxiety disorder HTN Hyperlipidemia Chronic Tropenemia Hypothyrodisim Hx of Wrist surgery Hx of knee surgery Hx of Hysterectomy VANESSA on CKD now resolved PLAN Continue supportive care. Clinically stable, potassium rechecked at out hospital is 4 Creatinine is 1.6. will monitor prn- Encourage fluid intake. Avoid all nephrotoxic agents Continue holding hydrochlorothiazide and monitor patient's blood pressure which is stable so far. If renal function continues to worsen may need to stop lisinopril also and switch to hydralazine and isosorbide. Continue home medication Manage BP Intermittent labs. DVT/GI History Interval history: Patient seen and examined, resting comfortable. Tolerating diet and fluid intake Hospitalist Physical - Physical exam Narrative exam: General appearance: Present: no acute distress, well-nourished - EENT ENT: hearing intact, clear oral mucosa - Neck Neck: Present: supple, normal ROM - Respiratory Respiratory effort: normal Respiratory: bilateral: CTA - Cardiovascular Rhythm: regular Heart Sounds: Present: S1 & S2. Absent: systolic murmur, diastolic murmur - Extremities Extremities: no ischemia, pulses intact, pulses symmetrical, No edema, normal temperature, normal color, Full ROM Peripheral Pulses: within normal limits - Abdominal General gastrointestinal: Present: soft, non-tender, non-distended, normal bowel sounds - Integumentary Integumentary: Present: clear, warm, dry - Musculoskeletal Musculoskeletal: strength equal bilaterally - Psychiatric Psychiatric: appropriate mood/affect, intact judgment & insight, memory intact, cooperative - Neurologic Neurologic: CNII-XII intact, moves all extremities, gait normal - Allied Health Allied health notes reviewed: nursing - Constitutional Vitals: Temp Pulse Resp BP Pulse Ox 97.6 F 76 18 135/54 97 01/29/22 09:21 01/29/22 10:28 01/29/22 09:21 01/29/22 10:28 01/29/22 09:18 General appearance: Present: no acute distress, well-nourished Results - Labs CBC & Chem 7: 01/25/22 10:38 01/29/22 07:14 Labs: Laboratory Last Values WBC 5.4 K/mm3 (4.5-11.0) 01/25/22 10:38 RBC 5.01 M/mm3 (3.65-5.03) 01/25/22 10:38 Hgb 13.9 gm/dl (10.1-14.3) 01/25/22 10:38 Hct 43.2 % (30.3-42.9) H 01/25/22 10:38 MCV 86 fl (79-97) 01/25/22 10:38 MCH 28 pg (28-32) 01/25/22 10:38 MCHC 32 % (30-34) 01/25/22 10:38 RDW 15.8 % (13.2-15.2) H 01/25/22 10:38 Plt Count 169 K/mm3 (140-440) 01/25/22 10:38 Lymph % (Auto) 35.8 % (13.4-35.0) H 01/25/22 10:38 [place] % (Auto) 8.4 % (0.0-7.3) H 01/25/22 10:38 Eos % (Auto) 0.0 % (0.0-4.3) 01/25/22 10:38 Baso % (Auto) 0.7 % (0.0-1.8) 01/25/22 10:38 Lymph # (Auto) 1.9 K/mm3 (1.2-5.4) 01/25/22 10:38 [place] # (Auto) 0.5 K/mm3 (0.0-0.8) 01/25/22 10:38 Eos # (Auto) 0.0 K/mm3 (0.0-0.4) 01/25/22 10:38 Baso # (Auto) 0.0 K/mm3 (0.0-0.1) 01/25/22 10:38 Seg Neutrophils % 55.1 % (40.0-70.0) 01/25/22 10:38 Seg Neutrophils # 2.9 K/mm3 (1.8-7.7) 01/25/22 10:38 Sodium 145 mmol/L (137-145) 01/29/22 07:14 Potassium 3.8 mmol/L (3.6-5.0) 01/29/22 07:14 Chloride 108.2 mmol/L (98-107) H 01/29/22 07:14 Carbon Dioxide 26 mmol/L (22-30) 01/29/22 07:14 Anion Gap 15 mmol/L 01/29/22 07:14 BUN 32 mg/dL (7-17) H 01/29/22 07:14 Creatinine 1.6 mg/dL (0.6-1.2) H 01/29/22 07:14 Estimated GFR 30 ml/min 01/29/22 07:14 BUN/Creatinine Ratio 20 % 01/29/22 07:14 Glucose 109 mg/dL (65-100) H 01/29/22 07:14 Hemoglobin A1c 6.2 % (4-6) H 01/25/22 10:38 Calcium 10.4 mg/dL (8.4-10.2) H 01/29/22 07:14 Total Bilirubin 0.50 mg/dL (0.1-1.2) 01/25/22 10:38 AST 29 units/L (5-40) 01/25/22 10:38 ALT 15 units/L (7-56) 01/25/22 10:38 Alkaline Phosphatase 79 units/L (35-129) 01/25/22 10:38 Total Protein 8.1 g/dL (6.3-8.2) 01/25/22 10:38 Albumin 5.1 g/dL (3.9-5) H 01/25/22 10:38 Albumin/Globulin Ratio 1.7 % 01/25/22 10:38 Triglycerides 126 mg/dL (2-149) 01/25/22 10:38 Cholesterol 246 mg/dL (50-199) H 01/25/22 10:38 LDL Cholesterol Direct 149 mg/dL (50-130) H 01/25/22 10:38 HDL Cholesterol 75 mg/dL (40-59) H 01/25/22 10:38 Cholesterol/HDL Ratio 3.28 % 01/25/22 10:38 TSH 19.790 mlU/mL (0.270-4.200) H 01/25/22 10:38 Free T4 1.07 ng/dL (0.76-1.46) 01/27/22 10:32 Hepatitis A IgM Ab Non-reactive (NonReactive) 01/25/22 10:38 Hep Bs Antigen Non-reactive (Negative) 01/25/22 10:38 Hep B Core IgM Ab Non-reactive (NonReactive) 01/25/22 10:38 Hepatitis C Antibody Non-reactive (NonReactive) 01/25/22 10:38 Call/IV: Voiding Method Toilet Active Medications - Current Medications Current Medications: Generic Name Dose Route Start Last Admin Trade Name Freq PRN Reason Stop Dose Admin Alprazolam 0.5 mg 01/25/22 22:00 01/28/22 21:34 Alprazolam 0.5 Mg Tab PO 0.5 mg HS JAKE Administration Amlodipine Besylate 5 mg 01/25/22 12:00 01/29/22 10:24 Amlodipine 5 Mg Tab PO 5 mg DAILY JAKE Administration Aspirin 81 mg 01/25/22 10:00 01/29/22 10:22 Aspirin Ec 81 Mg Tab PO 81 mg QDAY JAKE Administration Atorvastatin Calcium 10 mg 01/25/22 22:00 01/28/22 21:34 Atorvastatin 10 Mg Tab PO 10 mg HS JAKE Administration Calcium Carbonate/Glycine 1,250 mg 01/26/22 10:00 01/29/22 10:22 Calcium Carbonate 1250 Mg Tab PO 1,250 mg DAILY JAKE Administration Cholecalciferol 2,000 unit 01/26/22 12:00 01/29/22 10:23 Cholecalciferol (Vit D3) 1000 Unit (25 Mcg) Tab PO 2,000 unit DAILY JAKE Administration Donepezil HCl 10 mg 01/25/22 22:00 01/28/22 21:34 Donepezil 10 Mg Tab PO 10 mg HS JAKE Administration Levothyroxine Sodium 112 mcg 01/25/22 12:00 01/29/22 06:00 Levothyroxine 112 Mcg Tab PO 112 mcg 0600 JAKE Administration Lisinopril 40 mg 01/25/22 12:00 01/29/22 10:28 Lisinopril 40 Mg Tab PO Not Given QDAY JAKE Sertraline HCl 150 mg 01/25/22 12:00 01/29/22 10:23 Sertraline 100 Mg Tab PO 150 mg QDAY JAKE Administration
[2022-01-29] MEDS: DONEPEZIL 10 MG TAB PO SCH (21:31)
[2022-01-29] MEDS: ALPRAZolam 0.5 MG TAB PO SCH (21:32)
[2022-01-30] MEDS: LEVOTHYROXINE 112 MCG TAB PO SCH (05:22)
--- NOTE | 2022-01-30 09:09 | Discharge Summary ---
Providers - Providers Date of Admission: 01/25/22 00:53 Date of discharge: 01/30/22 Attending physician: ELMER JOHNSON MD 01/25/22 00:23 Consult to Physician [CONS] Routine Comment: Consulting Provider: SHARLENE LOWE Physician Instructions: Reason For Exam: management of medical problem Primary care physician: DRYER FEEDER Hospitalization Reason for admission: suicidal ideation Admitting Diagnosis: F33.9 - MAJOR DEPRESSIVE DISORDER, RECURRENT, UNSPECIFIED Condition: Stable Hospital course: The patient was provided inpatient psychiatric treatment with safe and supportive environment, group/individual therapy, psychiatric medication, medication adjustment, adverse effect monitor, medical evaluation, medical treatment, social service assessment, social support meeting, placement assessment and psycho-education. The patients mood, cognition, behavior, motivation, compliance to treatment and appreciation on family/social support are improved and stabilized. At the time of discharge, the patient had no suicidal ideas, no homicidal ideas, no aggressive thoughts, no endangering behavior and no debilitating adverse effects. The patient agreed on the treatment plan, understood the risk, benefit, alternative treatment, potential consequence of no treatment, and gave informed consent. Progress Note: 01/29: The was seen today. She reports doing well and mood is good. She reports sleep and appetite as good. The patient denies any current suicidal/homicidal ideation and denies hallucinations. No changes made today 01/28:The was seen today. She reports doing well and mood is good. She reports sleep and appetite as good. The patient denies any current suicidal/homicidal ideation and denies hallucinations. No changes made today. 01/27:The was seen today. She reports doing ok" I know that I have actions that display depression but I don't feel depressed" she rates depression as 1/10. The patient denies any current suicidal/homicidal ideation and denies hallucinations. 01/26: The was seen today. She reports mood as "good", presents with appropriate affect, states sleep and appetite as good. She denies depression. The patient denies any current suicidal/homicidal ideation and denies hallucinations. Disposition: 30 STILL A PATIENT Allergies/Adverse Reactions: Allergies Penicillins Allergy (Verified 01/25/22 00:20) Unknown Sulfa (Sulfonamide Antibiotics) Allergy (Verified 01/25/22 00:22) Unknown Vital Signs: Last Vital Signs Temp 98.6 F 01/29/22 20:41 Pulse 66 01/29/22 20:41 Resp 18 01/29/22 20:41 BP 154/54 01/29/22 20:41 Pulse Ox 96 01/29/22 20:41 Last Lab: Laboratory Last Values WBC 5.4 K/mm3 (4.5-11.0) 01/25/22 10:38 RBC 5.01 M/mm3 (3.65-5.03) 01/25/22 10:38 Hgb 13.9 gm/dl (10.1-14.3) 01/25/22 10:38 Hct 43.2 % (30.3-42.9) H 01/25/22 10:38 MCV 86 fl (79-97) 01/25/22 10:38 MCH 28 pg (28-32) 01/25/22 10:38 MCHC 32 % (30-34) 01/25/22 10:38 RDW 15.8 % (13.2-15.2) H 01/25/22 10:38 Plt Count 169 K/mm3 (140-440) 01/25/22 10:38 Lymph % (Auto) 35.8 % (13.4-35.0) H 01/25/22 10:38 [place] % (Auto) 8.4 % (0.0-7.3) H 01/25/22 10:38 Eos % (Auto) 0.0 % (0.0-4.3) 01/25/22 10:38 Baso % (Auto) 0.7 % (0.0-1.8) 01/25/22 10:38 Lymph # (Auto) 1.9 K/mm3 (1.2-5.4) 01/25/22 10:38 [place] # (Auto) 0.5 K/mm3 (0.0-0.8) 01/25/22 10:38 Eos # (Auto) 0.0 K/mm3 (0.0-0.4) 01/25/22 10:38 Baso # (Auto) 0.0 K/mm3 (0.0-0.1) 01/25/22 10:38 Seg Neutrophils % 55.1 % (40.0-70.0) 01/25/22 10:38 Seg Neutrophils # 2.9 K/mm3 (1.8-7.7) 01/25/22 10:38 Sodium 145 mmol/L (137-145) 01/29/22 07:14 Potassium 3.8 mmol/L (3.6-5.0) 01/29/22 07:14 Chloride 108.2 mmol/L (98-107) H 01/29/22 07:14 Carbon Dioxide 26 mmol/L (22-30) 01/29/22 07:14 Anion Gap 15 mmol/L 01/29/22 07:14 BUN 32 mg/dL (7-17) H 01/29/22 07:14 Creatinine 1.6 mg/dL (0.6-1.2) H 01/29/22 07:14 Estimated GFR 30 ml/min 01/29/22 07:14 BUN/Creatinine Ratio 20 % 01/29/22 07:14 Glucose 109 mg/dL (65-100) H 01/29/22 07:14 Hemoglobin A1c 6.2 % (4-6) H 01/25/22 10:38 Calcium 10.4 mg/dL (8.4-10.2) H 01/29/22 07:14 Total Bilirubin 0.50 mg/dL (0.1-1.2) 01/25/22 10:38 AST 29 units/L (5-40) 01/25/22 10:38 ALT 15 units/L (7-56) 01/25/22 10:38 Alkaline Phosphatase 79 units/L (35-129) 01/25/22 10:38 Total Protein 8.1 g/dL (6.3-8.2) 01/25/22 10:38 Albumin 5.1 g/dL (3.9-5) H 01/25/22 10:38 Albumin/Globulin Ratio 1.7 % 01/25/22 10:38 Triglycerides 126 mg/dL (2-149) 01/25/22 10:38 Cholesterol 246 mg/dL (50-199) H 01/25/22 10:38 LDL Cholesterol Direct 149 mg/dL (50-130) H 01/25/22 10:38 HDL Cholesterol 75 mg/dL (40-59) H 01/25/22 10:38 Cholesterol/HDL Ratio 3.28 % 01/25/22 10:38 TSH 19.790 mlU/mL (0.270-4.200) H 01/25/22 10:38 Free T4 1.07 ng/dL (0.76-1.46) 01/27/22 10:32 Hepatitis A IgM Ab Non-reactive (NonReactive) 01/25/22 10:38 Hep Bs Antigen Non-reactive (Negative) 01/25/22 10:38 Hep B Core IgM Ab Non-reactive (NonReactive) 01/25/22 10:38 Hepatitis C Antibody Non-reactive (NonReactive) 01/25/22 10:38 Core Measure Documentation - Palliative Care Palliative Care/ Comfort Measures: Not Applicable - Core Measures Any of the following diagnoses?: none - VTE Discharge Requirements Deep Vein Thrombosis/Pulmonary Embolism Present on Admission: No Exam - Constitutional Vitals: Temp Pulse Resp BP Pulse Ox 98.6 F 66 18 154/54 96 01/29/22 20:41 01/29/22 20:41 01/29/22 20:41 01/29/22 20:41 01/29/22 20:41 Plan Care Plan Goals: Maintain good and stable mental health. Plan of Treatment: The patient should be compliant with medications, not to use drugs and not to drink alcohol.The patient understands that if suicidal ideas, homicidal ideas, or any endangering thoughts/behavior arise, they should immediately seek for emergent assistance including but not limited to crisis hot line and emergency room. Follow up with outpatient Psychiatrist and PCP within 7 - 14 days of discharge. Follow up with: PRIMARY CARE, [Primary Care Provider] - 7 Days Prescriptions: ALPRAZolam [Xanax TAB] 0.5 mg PO HS 7 Days #7 Sertraline [Zoloft] 150 mg PO QDAY 30 Days #30
[2022-01-30 09:55] VITALS: BP 135/104
[2022-01-30] MEDS: ASPIRIN EC 81 MG TAB PO SCH (09:56)
[2022-01-30] MEDS: LISINOPRIL 40 MG TAB PO SCH (09:56)
[2022-01-30] MEDS: CHOLECALCIFEROL (VIT D3) 1000 UNIT (25 mcg) TAB PO SCH (09:56)
[2022-01-30] MEDS: CALCIUM CARBONATE 1250 MG TAB PO SCH (09:56)
[2022-01-30] MEDS: amLODIPine 5 MG TAB PO SCH (09:56)
[2022-01-30] MEDS: SERTRALINE 100 MG TAB PO SCH (10:27)
== END 2022-01-30 13:25 | disposition home or self-care (01) | DRG 881 ==
LOC: 3A 14:11 → UNDOADMIN 14:11 → 5A 01-25 00:53
PROVIDERS: ADMIT Psychiatry & Neurology Psychiatry; ATTEND Psychiatry & Neurology Psychiatry
DX: F32.9 Major depressive disorder, single episode, unspecified (principal); N17.0 Acute kidney failure with tubular necrosis; R45.851 Suicidal ideations; F41.1 Generalized anxiety disorder; N18.9 Chronic kidney disease, unspecified; I12.9 Hypertensive chronic kidney disease with stage 1 through stage 4 chronic kidney disease, or unspecified chronic kidney disease; E78.5 Hyperlipidemia, unspecified; K21.9 Gastro-esophageal reflux disease without esophagitis; E03.9 Hypothyroidism, unspecified; Z98.42 Cataract extraction status, left eye; Z98.41 Cataract extraction status, right eye; Z96.653 Presence of artificial knee joint, bilateral; Z79.82 Long term (current) use of aspirin; Z79.899 Other long term (current) drug therapy; Z90.710 Acquired absence of both cervix and uterus
CPT/HCPCS: 36415; 80048; 80053; 80061; 80074; 83036; 84439; 84443; 85025; G0378